=== PATIENT | male | born 1985 | race Caucasian/White ===

== ENCOUNTER 2016-11-29 18:41 | Inpatient (IN) | payer OTHER ==
[2016-11-29] MEDS ORDERED: fentaNYL 100 MCG/2 ML INJ ONE (18:46)
--- NOTE | 2016-11-29 19:26 | EDPHY ---
H & P HPI/ROS: CHIEF COMPLAINT: Left ankle injury HISTORY OF PRESENT ILLNESS: Patient is a 31-year-old male who presents to the emergency department as a full trauma activation by EMS. Patient states he was climbing had a rock climbing gym. He forgot to place himself on protection. He climbed to about 35 feet and fell. He landed on his feet. He felt a pop in his left ankle. He has significant pain in his left ankle. This is not radiate. He had mild tingling in his left foot but denies numbness. Patient denies any other discomfort. He has no pelvic pain. Denies back pain. He has no neck pain. He states he did not strike his head or lose consciousness. REVIEW OF SYSTEMS: My complete review of systems is negative except as mentioned in the HPI. 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 Purple hair. HEAD: No evidence of trauma. EYES: PERRLA, EOMI, normal to inspection. ENT: Airway intact, no dental or oral injury, no malocclusion, no hemotympanum , normal external examination. NECK: The trachea is midline. There is no crepitus. The C-spine is nontender. NEXUS criteria is negative (no midline tenderness, no distracting injury, no altered mental status, no recent alcohol use, no focal neurologic deficit). RESPIRATORY: Clear to auscultation bilaterally, no rales, rhonchi or wheezing. There is no crepitus or palpable rib fractures. CVS: Regular rate and rhythm, no rubs, murmurs, or gallops. ABDOMEN: Soft, nontender, nondistended, normal bowel sounds, no bruising or abrasions. Pelvis: Stable. No tenderness palpation. Hips full range of motion. GENITAL/RECTAL: Normal external exam. BACK: Normal to inspection, no spinal tenderness, no spinal step off, no notable bruising or abrasions. SKIN: Normal color, warm, dry. No pallor or diaphoresis. EXTREMITIES: Right upper extremity: Atraumatic. No visible signs of trauma. No tenderness palpation. Neurovascular intact distally. Left upper extremity: Atraumatic. No visible signs of trauma. No tenderness palpation. Neurovascular intact distally. Right lower extremity: Atraumatic. No visible signs of trauma. No tenderness palpation. Neurovascular intact distally. Left lower extremity: Patient has a deformity at the left ankle. Foot is angulated laterally. There is skin tenting on the medial malleolus. There is no laceration or open wound. Patient's foot appears dusky in color. There is a strong posterior tibialis but no palpable DP. Atraumatic, neurovascularly intact distally in all extremities, pelvis is stable , hips with full range of motion, moves all extremities freely. NEURO/PSYCH: Alert and oriented x 3, GCS 15, normal mood and affect, normal motor sensory exam. Constitutional: Initial Vital Signs Temperature (C) 36.9 C 11/29/16 18:41 Heart Rate 66 11/29/16 18:41 Respiratory Rate 9 L 11/29/16 18:41 Blood Pressure 110/70 11/29/16 18:41 O2 Sat (%) 99 11/29/16 18:41 O2 Delivery Mode Nasal Cannula O2 (L/minute) 2 Allergies/Adverse Reactions: No Known Allergies Allergy (Unverified 11/29/16 19:29) Home Medications: Medication Instructions Recorded oxyCODONE/APAP 5/325 [Percocet 1 - 2 tab PO Q4PRN PRN #11 tab 11/29/16 5/325 (*)] Medical Decision Making ED Course/Re-evaluation: In the emergency department I met EMS on arrival. I took report from the director of scout work. Dr. Scott Abrams from Trauma service was in the emergency department evaluating the patient on EMS arrival. Orthopedics was paged. Portable x-ray of the left foot, ankle, tib-fib and pelvis were performed. Left ankle x-ray: Please refer the dictated report. I reviewed the images at bedside. Patient has a comminuted and displaced distal tibial and fibular fracture. Pelvis x-ray: Negative Tib-fib x-ray: See ankle x-ray above. No proximal tib-fib fracture dislocation. Foot x-ray: Negative Patient was noted to have no DP pulse. I discussed this with the patient. Patient was given fentanyl 100 mcg IV. Using traction I manually reduced the patient's ankle. He was splinted in place with a long leg posterior splint. Post reduction the patient had normal sensation. Patient stated that the tingling improved. Patient's foot color improved. He had brisk capillary refill. The patient continued to have a posterior tibialis pulse. No DP pulse. I discussed case with Dr. Scott Abrams from Trauma Service. He felt the patient was appropriate to downgrade as a limited trauma activation. The patient an isolated injury of his left ankle. I also felt this was appropriate. I discussed the case with Vi from Orthopedics who was in the emergency department. I also discussed the case with Dr. Muniz on the phone. After their evaluation they felt the the patient was appropriate for outpatient management. I discussed specifically the pulse deficit on my exam. Dr. Adair' s felt comfortable splinting and performing outpatient surgery. 193: On re-examination the patient has no numbness or tingling. His foot is pink. Normal sensation. The patient now has a posterior tibialis and the dorsalis pedis pulse. Vi, the PA from Orthopedics in the room evaluating the patient. Patient is now complaining of mid thoracic back pain. He states that extends into his lumbar region. No focal deficits on exam. The patient has no C-spine tenderness. Has full range of motion of his neck. He denies neck pain. Because of the patient's fall and is complaints CT imaging of the thoracic and LS spine was ordered. CT of the thoracic, LS spine. Please refer the dictated report by Dr. Shun Castellon. Patient has a 3 column T12 compression fracture. I discussed this finding with the patient. I answered all his questions. On recheck he was neurovascularly intact distally. I discussed the case with Dr. Scott Abrams. He will admit the patient for further care and observation. I spoke with Dr. Denton from Neurosurgery. He is aware of injury. The patient will be kept on bed rest was spinal precautions. Differential Diagnosis: My differential includes but is not limited to fracture, dislocation, fracture dislocation, neurovascular injury, compartment syndrome, spinal injury, head injury, pelvic injury - Data Points Medications Given: Discontinued Medications Fentanyl (Sublimaze) 100 mcg IVP EDNOW ONE Stop: 11/29/16 20:00 Last Admin: 11/29/16 18:47 Dose: 100 mcg Hydromorphone HCl (Dilaudid) 1 mg IVP EDNOW ONE Stop: 11/29/16 20:00 Last Admin: 11/29/16 19:52 Dose: 1 mg Departure - Departure Disposition: [facility] Clinical Impression: Tibia/fibula fracture Qualifiers: Encounter type: initial encounter Fracture type: closed Laterality: left Qualified Code(s): S82.202A - Unspecified fracture of shaft of left tibia, initial encounter for closed fracture; S82.402A - Unspecified fracture of shaft of left fibula, initial encounter for closed fracture Ankle fracture Qualifiers: Encounter type: initial encounter Fracture type: closed Laterality: left Qualified Code(s): S82.892A - Other fracture of left lower leg, initial encounter for closed fracture T12 compression fracture Qualifiers: Encounter type: initial encounter Qualified Code(s): M48.54XA - Collapsed vertebra, not elsewhere classified, thoracic region, initial encounter for fracture Condition: Good Instructions: Ankle Fracture (ED) Additional Instructions: You been seen by Orthopedic surgery at [facility]. You can follow up with Dr. Kincaid. Ankle specialists in his practice include Dr. Nolan Mackey. Your stated that you have [employer] insurance. I contacted [place] to inform them of your injury. They request that you call the orthopedic appointment line tomorrow. The number is [phone]. Return to the emergency department with increasing pain, numbness, tingling or any other concerns. Leave your splint in place until follow-up. You should be nonweightbearing use her crutches. Referrals: Patient,NotPresent [Unknown] - As per Instructions Prescriptions: oxyCODONE/APAP 5/325 [Percocet 5/325 (*)] 1 - 2 tab PO Q4PRN PRN #11 tab PRN Reason: For Moderate To Severe Pain
[2016-11-29] MEDS ORDERED: ONDANSETRON 4 MG/2 ML VIAL ONE (19:41)
[2016-11-29] MEDS ORDERED: HYDROmorphONE/DILAUDID 1 MG/ML SYR ONE (19:50)
[2016-11-29] MEDS ORDERED: HYDROmorphONE/DILAUDID 1 MG/ML SYR IVP ONE ×2 (19:59→21:00)
[2016-11-29] MEDS ORDERED: fentaNYL 100 MCG/2 ML INJ IVP ONE (19:59)
--- NOTE | 2016-11-29 20:28 | GCON ---
[f rep st] CONSULTATION GENERAL SURGERY CONSULTATION DATE OF CONSULTATION: 11/29/2016 REFERRING PHYSICIAN: Kely Arriaga MD REASON FOR CONSULTATION: Full trauma activation. HISTORY OF PRESENT ILLNESS: 31-year-old healthy male sustained a fall from approximately 30 feet while climbing at the [employer]. He did not clip into his auto nelsy and fell straight down, landing on his left ankle. The patient denied loss of consciousness. He denied hitting his head. He was nonambulatory at the scene and brought by EMS to the emergency room. At the present time, the patient is with complaints of left ankle pain only. He denies chest pains. He denies shortness of breath. He denies abdominal complaints. He denies headache, visual changes, or neck pain. He denies thoracic or lumbar spine pain. He denies hip pain or upper leg pain. He denies numbness or tingling in either foot. PAST MEDICAL HISTORY: Autism, anxiety disorder. PAST SURGICAL HISTORY: Left inguinal hernia repair. MEDICATIONS: Medical marijuana. ALLERGIES: No known drug allergies. SOCIAL HISTORY: Notable for marijuana. No tobacco. He is single. REVIEW OF SYSTEMS: Notable for a recent 75 pounds weight loss, intentional. Otherwise, a negative 10-point review of systems. PHYSICAL EXAMINATION: VITAL SIGNS: The patient is afebrile. Blood pressure 120/80, pulse 90s, respirations 15. PRIMARY SURVEY: ABC intact. SECONDARY SURVEY: HEENT: Pupils are equally round and reactive to light and accommodation. Extraocular muscles are intact. Notable conjunctival injection. Scalp atraumatic, nontender. NECK: Cervical collar in place. Trachea midline without crepitus. Posterior cervical spine nontender. Collar was subsequently removed. HEART: Regular without murmurs. LUNGS: Clear bilaterally. CHEST: Chest wall with mild superficial abrasions along the right lateral chest wall. No bony step-offs or deformities. ABDOMEN: Soft, nontender, nondistended. PELVIS: Nontender. Left groin with a well-healed inguinal hernia with palpable contracted mesh. No evidence of recurrent hernia. MUSCULOSKELETAL: Thoracic and lumbar spines nontender. Right lower extremity normal. Left lower extremity with obvious ankle deformity with overlying intact skin with displaced bone. VASCULAR: 2+ radial pulses bilaterally. 2+ right dorsalis pedis and posterior tibial pulse. 2+ left posterior tibial pulse. Dorsalis pedis pulse not palpable. The foot was subsequently reduced, again with a nonpalpable dorsalis pedis pulse with a completely viable foot, pink, warm with normal sensation. Normal bilateral popliteal arteries. Normal bilateral femoral arteries. IMAGING: Ankle x-ray directly reviewed: Distal left tib-fib fracture. Subsequent review with radiology discloses intra-articular extension with an associated left fibular fracture. TERTIARY ASSESSMENT: New complaint of mid back pain. Subsequent imaging performed discloses T12 compression fracture. Patient remains neurologically intact. DP pulse is now present post ankle reduction. IMPRESSION: 1. Fall approximately 30 feet. 2. Comminuted left distal tibia-fibula fracture with articular surface involvement. 3. T12 compression fracture. PLAN: 1. Orthopedics Service has been consulted for surgical ORIF. Left ankle has been reduced and splinted temporarily. They recommend outpatient follow-up either here or at [place]. 2. Cervical spine has been clinically cleared. 3. Unstable T12 compression fracture - Neurosurgery has been contacted. Will maintain spinal precautions until dispo determined. /[id number]/MODL MTDD
[2016-11-29] MEDS ORDERED: ONDANSETRON 4 MG/2 ML VIAL IVP PRN (20:49)
--- NOTE | 2016-11-29 21:38 | SOAPPROG ---
SOAP Progress Note Assessment/Plan: Assessment: HPI: 31 y/o male s/p 35 foot fall onto LLE and back earlier today when climbing at a gym after he forgot to clip in. He was brought to the [facility] ED where he was found to have a left pilon fracture, left distal fibular shaft fracture, and a T12 burst fracture with extension across all three columns. PE: General: NAD Vitals: AVSS LLE: Posterior sugar-tong splint CDI 2+ DP and PT pulses +TA, EHL, FHL, G/S +SILT in DP, SP, Sural, T, Saphenous distributions Imaging: Left ankle and left tibia/fibula radiographs, three views Action: interpreted Interpretation: Left tibial pilon fracture, left distal fibular shaft fracture Assessment and Plan 31 y/o male s/p a left pilon fracture, left distal fibular shaft fracture, and a T12 burst fracture with extension across all three columns -Continue in current splint -Strict NWB on LLE -Elevate LLE -Will wait until patient has been cleared by neurosurgery to determine further plan for left ankle -Full consult note to follow 11/29/16 21:32 12/06/16 19:58 Objective: Vital Signs Temp Pulse Resp BP Pulse Ox 36.9 C 66 9 L 110/70 99 11/29/16 18:41 11/29/16 18:41 11/29/16 18:41 11/29/16 18:41 11/29/16 18:41 ICD10 Worksheet Patient Problems: Problems Problem Status Onset Activity, mountain climbing, rock climbing and wall climbing Acute Ankle fracture Acute Fall involving playground climbing apparatus as cause of accidental injury Acute T12 compression fracture Acute Tibia/fibula fracture Acute
[2016-11-29] MEDS: HYDROmorphONE/DILAUDID 1 MG/ML SYR IVP PRN (22:36)
--- NOTE | 2016-11-29 23:13 | GCON ---
[f rep st] CONSULTATION Patient Name: KRISH LOPEZ N-Number: [id number] Date of : 11/29/16 Patient Status: Admit Attending Doctor: Scott Abrams MD Consulting Doctor: Daniele Adari MD Date of service: 11/29/16 CPT codes: CPT code 69326 ER visit requiring admission or initial inpatient visit, level four CHIEF COMPLAINT: Left ankle pain s/p a 30 feet foot, lower thoracic back pain HISTORY OF PRESENT ILLNESS: This is a very pleasant 31 year old male with a significant history for fall 30 feet while climbing at [employer]. He fell directly onto his left ankle. He was brought to [facility] ED and reported severe left ankle pain as well as lower thoracic back pain. He was found to have a left pilon fracture, a left distal fibular shaft fracture, and a T12 burs fracture. He denies head injury. PROBLEM LIST: Left pilon fracture, left distal fibular shaft fracture, T12 burst fracture PAST MEDICAL HISTORY: Autism, anxiety disorder SURGERIES: Left inguinal hernia repair SOCIAL HISTORY: Notable for marijuana FAMILY HISTORY: No pertinent family history CURRENT MEDICATIONS: Medical marijuana ALLERGIES: NKDA REVIEW OF SYSTEMS Constitutional: No unexpected weight loss, weight gain, fevers, chills, or fatigue. Eyes: No blurred or double vision, no eye pain, redness or swelling. ENT: No headaches, difficulty swallowing, nose bleeds, tinnitus, or earaches. Cardiovascular: No chest pain, palpitations, fainting or murmurs. Respiratory: No shortness of breath, wheezing, cough, of difficulty breathing. GI: No reflux, no nausea or vomiting, no constipation, diarrhea, or bloody stools. Genitourinary: No urinary frequency or urgency, no pain with urination. Skin: No skin changes, rashes, itching, or redness. Neurologic: No dizziness, tremors, or seizures. Psychiatric: No nervousness, anxiety, depression, or hallucinations. Hematologic: No increased bleeding or easy bruising. Endocrine: No excessive thirst or urination and no heat or cold intolerances. Allergic: No reactions to food or environment. Musculoskeletal: See history of present illness. PHYSICAL EXAM General: No apparent distress. Orientation: Alert and oriented times three Mood and affect: Calm, appropriate. Gait and station: Normal gait and station. Skin: Warm, dry. Lymph: Non tender neck, axillary and inguinal nodes. Chest: Equal expansion, no pain with deep breaths, speaks in coherent sentences. Cardiovascular: Regular pulse. Abdomen: Soft, non-tender, no masses, no palpable hernias. Back and bilateral lower extremity examination Inspection/palpation: TTP along the T12 vertebra posteriorly Skin: Skin intact with no erythema, blistering, or rashes. Range of motion Lateral flexion (R / L / Normal): SANTY / SANTY / 25 Flexion (Value / Normal): SANTY / 90 Extension (Value / Normal): SANTY / 25 Strength (R / L / Normal) Muscle(s) Quadriceps (L3-L4): 5 / 4 / 5 Hamstrings (L4-L5): 5 / 4 / 5 Tibialis anterior (L4): 5 / SANTY / 5 EHL (L5): 5 / 3 / 5 FHL (S1): 5 / 3 / 5 Gastroc-soleus (S1): 5 / 3 / 5 Sensory (R / L / Normal) Dermatomes L1 (groin): + / + / + L2 (medial upper thigh): + / + / + L3 (anterior thigh): + / + / + L4 (medial ankle): + / + / + L5 (first dorsal web space): + / + / + S1 (lateral border of foot): + / + / + Peripheral nerves Superficial peroneal: + / + / + Deep peroneal: + / + / + Sural: + / + / + Tibial: + / + / + Saphenous: + / + / + Bilateral ankle examination Inspection/palpation: Right: Soft, non-tender. Left: Moderate swelling, skin intact Range of motion Dorsiflexion: 20 / SANTY / 20 Plantarflexion: 40 / SANTY / 40 Vascular (R / L / Normal) Dorsal pedis pulse: 2+ / 2+ / 2+ Tibialis posterior pulse: 2+ / 2+ / 2+ Medical decision making Data Imaging study: Left ankle, two views Action: interpreted Interpretation / pertinent findings: left pilon fracture, left distal fibular shaft fracture Imaging study: CT of the thoracic spine Action: interpreted Interpretation / pertinent findings: T12 burs fracture with mild kyphotic deformity Diagnoses New diagnosis: left pilon fracture, left distal fibular shaft fracture Work-up planned: yes: see assessment and plan New diagnosis: T12 burst fracture Work-up planned: yes: see assessment and plan Assessment and plan This is a 31 year old patient with left pilon fracture, a left distal fibular shaft fracture, and a T12 burst fracture after a 30 foot fall earlier today -As such I have discussed with the patient the risks, benefits, alternatives, and complications associated with both non-operative (specifically, observation , splinting) and operative (specifically, left ankle spanning external fixation , left distal fibula ORIF, and left pilon ORIF) forms of treatment -The patient fully understands the risks, benefits, alternatives, and complications of both forms of treatment and he will remain in his current splint until cleared by Neurosurgery for his thoracic spine injury Time I have spent 80 minutes of [id number] time with the patient during this visit. Over fifty percent of this time was spent counseling the patient on the risks, benefits, alternatives, and complications of both non-operative and operative forms of treatment as outlined above. /[id number]/MODL MTDD
[2016-11-30] MEDS: HYDROmorphONE/DILAUDID 1 MG/ML SYR IVP PRN ×4 (00:09→16:10)
[2016-11-30] MEDS: oxyCODONE IR 5 MG TAB PO PRN ×3 (00:10→13:25)
[2016-11-30] MEDS: LORazepam 1 MG TAB PO PRN ×2 (01:34→05:15)
[2016-11-30] MEDS: ZOLPIDEM TARTRATE 5 MG TAB PO PRN (02:46)
--- NOTE | 2016-11-30 08:26 | SOAPPROG ---
SOAP Progress Note Assessment/Plan: Assessment: L communinuted pilon fracture Plan: Ex fix and possible orif fibula this afternoon nwb LLE elevate aggressivly NPO 11/30/16 08:25 Objective: Vital Signs Temp Pulse Resp BP Pulse Ox 36.6 C 60 18 118/73 96 11/30/16 04:36 11/30/16 04:36 11/30/16 04:36 11/30/16 04:36 11/30/16 04:36 11/29/16 11/30/16 12/01/16 05:59 05:59 05:59 Intake Total 1000 Output Total 600 Balance 1000 -600 ICD10 Worksheet Patient Problems: Problems Problem Status Onset Ankle fracture Acute T12 compression fracture Acute Tibia/fibula fracture Acute
--- NOTE | 2016-11-30 09:50 | GCON ---
[f rep st] CONSULTATION NEUROSURGERY CONSULTATION DATE OF CONSULTATION: 11/30/2016 Patient was seen and evaluated on the general care floor at [facility] approximately 8:30 a.m. on 11/30/2016. HPI: The patient is a 31-year-old man who was rock climbing and was not clipped into his nelsy when he fell approximately 35 feet, landing on his left ankle, and then falling down onto his back. He denies any loss of consciousness. He did not hit his head. He had immediate pain in the left leg m ostly and ankle, and some pain also in his back. He was transported to the [facility] Emergency Department where he was worked up as a trauma. He did not have any other complaints ot her than the left leg pain and relatively mild low back pain. He was found to have a compound ankle fracture on the left side and a T12 burst fracture with no significant retropulsion and mild kyphos is on CT of the thoracic spine. He had a subsequent MRI which did not show any canal compromise and no injury to the posterior ligaments. Neurologically, he was completely asymptomatic with no pain in his legs, good strength and sensation. PAST MEDICAL HISTORY: 1. Autism. 2. Anxiety disorder. 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 PAST SURGICAL HISTORY: Hernia repair. ALLERGIES: No known drug allergies. MEDICATIONS: Medical marijuana and a number of herbal medications. SOCIAL HISTORY: The patient does use marijuana. He denies tobacco, alcohol, or other drug use. FAMILY HISTORY: No significant family history of other back problems. REVIEW OF SYSTEMS: A 10-point review of systems is negative other than that described in the HPI. PHYSICAL EXAM: Currently, he has normal stable vital signs. He is awake, alert, and oriented x3. His affect is somewhat flattened than usual but otherwise he is conversant and answers questions. T he pupils are equal, round, and reactive to light. Extraocular movements are intact. Face is symme tric. Tongue is midline. He has full 5/5 strength in the deltoid, biceps, triceps, wrist flexion, extension, and manager rfid bilaterally. In the lower extremities, his left lower extremity is somewhat rodriguez ited by pain but he appears to have 5/5 strength of the hip flexors and extensors, knee flexors and extensors, and plantar and dorsiflexion bilaterally. The left ankle is in a splint, therefore the p lantar and dorsiflexion is difficult to assess. His incision from the examinable portions of the le gs is normal. The deep tendon reflexes are normal. IMAGING REVIEW: See HPI. RESULTS REVIEW: There are no labs to review. ASSESSMENT AND PLAN: The patient is a 31-year-old otherwise healthy man who fell 35 feet and sustai jeremy a T12 burst fracture. There is about 40% to 50% loss of height and mild kyphosis but the nurse practical ior ligaments are intact. There is no retropulsion or canal compromise. At this point, I would rec ommend having Magnetic Resonance Imaging Director fit a custom casted TLSO with slight extension bias and this most likely will b e quite adequate for treatment for this fracture. After the brace is fit, would get upright films a nd if he does have an increasing amount of kyphosis, then surgical stabilization might be an option but it is very likely that this will heal well in a brace. We will continue to follow but please do not hesitate to call us with any questions or concerns in the meantime. In the meantime, it would be fine for him to go for surgical fixation of his ankle if this is necessary. /[id number]/MODL
--- NOTE | 2016-11-30 11:09 | TRAUMAPN ---
Assessment/Plan: 31yo M s/p 30ft fall c T12 burst fx, L ankle fx - Neuro: pain controlled, neuro intact. NSG following for burst, will get TLSO fitted - Resp: AR, aggressive IS - CV: HDS - GI; abd soft, ND, NTTP, NPO for ORIF anlke - : voiding - ID: [email or web address] - Dispo: PT/OT, ORIF for ankle, will get post TLSO films to ensure proper alignment, no other injuries identified on exam today Subjective: Pain appears well controlled, no complaints Objective: Vital Signs Temp Pulse Resp BP Pulse Ox 36.9 C 67 15 114/74 96 11/30/16 09:08 11/30/16 09:08 11/30/16 09:08 11/30/16 09:08 11/30/16 09:08 11/29/16 11/30/16 12/01/16 05:59 05:59 05:59 Intake Total 1000 Output Total 600 Balance 1000 -600
[2016-11-30] MEDS: NS 1,000 ML IV SCH (12:00)
[2016-11-30] MEDS ORDERED: BUPIVACAINE 0.5% 30 ML SDV ONE (15:14)
[2016-11-30] MEDS ORDERED: SKIN ADHESIVE (DERMABOND) 1 EACH TP ONE (15:14)
[2016-11-30] MEDS ORDERED: fentaNYL 100 MCG/2 ML INJ ONE (17:47)
[2016-11-30] MEDS ORDERED: ONDANSETRON 4 MG/2 ML VIAL ONE (17:48)
[2016-11-30] MEDS ORDERED: LIDOCAINE 2% 5 ML SDV ONE (17:49)
[2016-11-30] MEDS ORDERED: CEFAZOLIN 2 GM/DEXTROSE/100 ML BAG IV ONE (17:59)
[2016-11-30] MEDS ORDERED: ceFAZolin 2 GM/DEXTROSE 100 ML IV ONE (18:00)
[2016-11-30] MEDS ORDERED: ROCURONIUM 50 MG/5 ML VIAL ONE (18:04)
[2016-11-30] MEDS ORDERED: MIDAZOLAM 2 MG/2 ML VIAL ONE (18:14)
[2016-11-30] MEDS ORDERED: fentaNYL 250 MCG/5 ML INJ ONE (18:46)
[2016-11-30] MEDS ORDERED: KETOROLAC 30 MG/1 ML SDV ONE (19:38)
[2016-11-30] MEDS ORDERED: GLYCOPYRROLATE 0.2 MG/1 ML VIAL ONE (19:50)
--- NOTE | 2016-11-30 20:07 | POSTOPPROG ---
Post Op Note Date of Operation: 11/30/16 Surgeon: Will Francisco Anesthesiologist: Dannielledegallo Anesthesia: GET(General Endotracheal) Pre-op Diagnosis: L pilon fracture, fibular fracture Post-op Diagnosis: same Indication: communited, shortended Procedure: orif fibula, closed treatment with manipulation pilon fracture, ex- fix Inf/Abcess present in the surg proc area at time of surgery?: No EBL: 50-100
[2016-11-30] MEDS ORDERED: HYDROmorphONE/DILAUDID 1 MG/ML SYR ONE (20:41)
[2016-12-01] MEDS: NS 1,000 ML IV SCH (01:35)
[2016-12-01] MEDS: oxyCODONE IR 5 MG TAB PO PRN ×5 (03:43→19:43)
[2016-12-01] MEDS: HYDROmorphONE/DILAUDID 1 MG/ML SYR IVP PRN ×3 (03:43→19:43)
--- NOTE | 2016-12-01 06:13 | GOP ---
[f rep st] OPERATIVE REPORT DATE OF OPERATION: 11/30/2016 SURGEON: Will Francisco MD PROGRAM ASSISTANT: None. ANESTHESIA: General. PREOPERATIVE DIAGNOSIS: Left comminuted pilon fracture, fibula fracture. POSTOPERATIVE DIAGNOSIS: Left comminuted pilon fracture, fibula fracture. PROCEDURE PERFORMED: 1. Open reduction, internal fixation left fibula. 2. Closed treatment with manipulation left pilon. 3. Placement large external fixator. FINDINGS: ESTIMATED BLOOD LOSS: 10 mL INDICATIONS: This is a young male who sustained a fall from a height sustaining a comminuted shortened intra-articular pilon fracture. He was admitted to Trauma service and seen in consultation by one of my partners. I was asked today to see him in evaluation for treatment. I counseled patient on the risks and benefits of an external fixator placement with possible ORIF of his fibula in order to obtain stability and allow soft tissues to be minimal for surgical repair. He consented to this. Discussed soft-tissue injury, risk of skin breakdown, nerve injury, continued swelling, pain, nonunion, malunion, need for the further definitive treatment, nerve injury and possible amputation with an injury this severe and would like to proceed. Informed consent obtained. All questions were answered. He was marked preoperatively. DESCRIPTION OF PROCEDURE: He was taken to the operative suite. General anesthesia was induced. Sterile prep and drape in the usual fashion. Time-out was performed verifying site, side, location in agreement with the team. Using the guide, I made 2 incisions over the tibia and placed 2 half pins for an external fixator Bicortically. Then made an incision with fluoroscopy over the medial side of the calcaneus and placed bicortical calcaneal pin through this. Some of the external fixator made adjustments. Pulled this out to length. It was very difficult to obtain a reduction. The fibula was quite often pinned against itself and it was difficult to make the ankle mortise look correct. I made a decision to fix the fibula in order to help with length, alignment and rotation. Made incision over the fibula in the posterior lateral area. Allowing adequate space for the anterior incision needed later as well as access to posterior portion later. I exposed the fibular fracture, manually distracted this. While loosening 1 side of the ex-fixator, placed the 2 ends together. I placed a one-third tubular plate on this and placed 3 screws on each side, achieving good stable construct and good reduction. This helped immensely with reduction overall of the ankle. I made small adjustments of the external fixator and then tightened this down and took final x-rays, made sure this was finally tightened. The wounds were thoroughly closed with 0 Vicryl, 2- 0 Vicryl and nylon, was placed in sterile dressing, taken to PACU in stable condition. COMPLICATIONS: None. DRAINS: None. CONDITION: Stable. /[id number]/MODL MTDD
--- NOTE | 2016-12-01 07:37 | NEUSURGPN ---
Assessment/Plan: 31 yo male s/p fall with T12 burst fracture - neuro stable - will attempt to treat conservatively with a brace to be worn when out of bed - patient received wrong brace, needs to obtain a custom clamshell TLSO brace with slight extension - wear brace when HOB > 30 degrees - once brace arrives, patient to obtain upright x-rays. If fracture stable will treat with brace Subjective: Having localized back pain, worse than prior to his fall. Believes it is due to laying in bed, typically he sleeps in a recliner. Objective: Awake. Alert. PERRL. EOMI RLE strength 5/5 Sensation intact Catheter Insertion Date: 11/30/16 - Physician Discussed Patient with : [facility] Physical Exam - Vitals, I&O, Labs I and O 11/30/16 12/01/16 12/02/16 05:59 05:59 05:59 Intake Total 1000 3750 Output Total 2375 Balance 1000 1375 Weight 68.492 kg Intake: Oral (ml) 1000 IV Intake (ml) 1600 IV Infused (ml) 1000 1150 Ns 1,000 ml @ 100 mls/hr 1100 IV CONT ROSALIE Rx#: [id number] ceFAZolin 1 GM/DEXTROSE 50 50 ml @ 200 mls/hr IV Q8H COUNTS INCLUDE 234 BEDS AT THE [facility] Rx#:[id number] Output: Urine (ml) 2350 Catheter 2350 Estimated Blood Loss (ml) 25 Other: Bladder Scan Volume (ml) Catheter 900 Urinal 571 Vital Signs Temp Pulse Resp BP Pulse Ox 36.9 C 62 16 122/80 H 94 12/01/16 04:00 12/01/16 04:00 12/01/16 04:00 12/01/16 04:00 12/01/16 04:00 ICD10 Worksheet Patient Problems: Problems Problem Status Onset Ankle fracture Acute T12 compression fracture Acute Tibia/fibula fracture Acute
[2016-12-01] MEDS: LORazepam 1 MG TAB PO PRN ×3 (12:49→21:27)
--- NOTE | 2016-12-01 13:14 | SOAPPROG ---
SANTIAGO Progress Note Assessment/Plan: Assessment: L communinuted pilon fracture Plan: Status post left ankle external fixator placement and ORIF fibula 11/30 nonweightbearing left ankle May change dressings as needed recommend compression elevation and ice he needs to keep this dry leave dressings intact over pains no specific pain care required at this point he may be discharged from my standpoint follow up with me next week in clinic he has my number to make an appointment I will plan on definitive fixation of the Pilon fracture with removal of the ex fix in approximately 2 weeks 12/01/16 13:12 Subjective: minimal pain at rest pain laterally with any movement of the ankle he complains mostly of back pain today Objective: Vital Signs Temp Pulse Resp BP Pulse Ox 36.9 C 67 15 118/74 94 12/01/16 08:54 12/01/16 08:54 12/01/16 08:54 12/01/16 08:54 12/01/16 08:54 11/30/16 12/01/16 12/02/16 05:59 05:59 05:59 Intake Total 1000 3750 Output Total 2375 Balance 1000 1375 left external fixator intact dressing is dry he has good sensation of his toes and can flex and extend them well. ICD10 Worksheet Patient Problems: Problems Problem Status Onset Ankle fracture Acute T12 compression fracture Acute Tibia/fibula fracture Acute
--- NOTE | 2016-12-01 17:51 | TRAUMAPN ---
Assessment/Plan: 31 yo M s/p fall while rock climbing. Comminuted L tib-fib fx - s/p ex fix and ORIF fibula 11/30. Nonweightbearing L ankle. F/u Dr. Francisco 1 week. T12 burst fx - awaiting correct custom clamshell TLSO brace, then upright x- rays. NSG following Pain controlled Dispo: home when brace arrives and xrays obtained. Seen with Dr. Haskins S: complains of back pain, which he attributes is due to laying in the bed. He is upset that staff is questioning his dietary restrictions. O: laying in bed, appears comfortable, NAD No increased WOB, CTAB RRR LLE dressings intact Objective: Vital Signs Temp Pulse Resp BP Pulse Ox 37.1 C 75 15 125/78 H 94 12/01/16 16:30 12/01/16 16:30 12/01/16 16:30 12/01/16 16:30 12/01/16 16:30 11/30/16 12/01/16 12/02/16 05:59 05:59 05:59 Intake Total 1000 3750 2500 Output Total 2375 2500 Balance 1000 1375 0
[2016-12-01] MEDS: ZOLPIDEM TARTRATE 5 MG TAB PO PRN (21:30)
[2016-12-02] MEDS: oxyCODONE IR 5 MG TAB PO PRN ×5 (02:01→23:57)
[2016-12-02] MEDS: HYDROmorphONE/DILAUDID 1 MG/ML SYR IVP PRN ×2 (02:02→22:17)
[2016-12-02] MEDS: ZOLPIDEM TARTRATE 5 MG TAB PO PRN ×2 (02:02→23:58)
--- NOTE | 2016-12-02 08:07 | NEUSURGPN ---
Assessment/Plan: Assessment: 31 yo male s/p fall with T12 burst fracture and other ortho injuries Plan: -neuro stable -will attempt to treat conservatively with a brace to be worn when out of bed -patient received wrong brace yesterday, needs to obtain a custom clamshell TLSO brace with slight extension-this is pending at this time -wear brace when HOB > 30 degrees -once brace arrives, patient to obtain upright x-rays. If fracture stable will treat with brace -warning signs given -call with any questions or concerns -pt d/w Dr Elam Subjective: Awake and alert. NAD. Eating/drinking and voiding. No f/c/n/v/d. No figueroa/neck/ chest/abd or gu complaints. Objective: AAO x 3, PERRLA/EOMI no droop CN 2-12 grossly intact +lt touch THI x 4, limited to LLE due to ex fix in place Neuro Check Frequency: per routine Urinary Catheter in Place: No Catheter Insertion Date: 11/30/16 - Physician Discussed Patient with Dr.: [facility] Physical Exam - Vitals, I&O, Labs I and O 12/01/16 12/02/16 12/03/16 05:59 05:59 05:59 Intake Total 3750 3150 Output Total 2375 4000 Balance 1375 -850 Intake: Oral (ml) 1000 3150 IV Intake (ml) 1600 IV Infused (ml) 1150 Ns 1,000 ml @ 100 mls/hr 1100 IV CONT ROSALIE Rx#: [id number] ceFAZolin 1 GM/DEXTROSE 50 50 ml @ 200 mls/hr IV Q8H ROSALIE Rx#:[id number] Output: Urine (ml) 2350 4000 Catheter 2350 4000 Estimated Blood Loss (ml) 25 Other: Number of Voids Catheter 1 Bladder Scan Volume (ml) Catheter 900 Vital Signs Temp Pulse Resp BP Pulse Ox 37.1 C 95 16 134/82 H 97 12/02/16 07:54 12/02/16 07:52 12/02/16 07:52 12/02/16 07:52 12/02/16 07:52 ICD10 Worksheet Patient Problems: Problems Problem Status Onset Ankle fracture Acute T12 compression fracture Acute Tibia/fibula fracture Acute
[2016-12-02] MEDS ORDERED: LACTULOSE 20 GM/30 ML UDCUP PO PRN (08:46)
[2016-12-02] MEDS ORDERED: MAGNESIUM HYDROXIDE 30 ML UDCUP PO PRN (08:46)
[2016-12-02] MEDS ORDERED: BISACODYL 10 MG SUPP PR PRN (08:46)
[2016-12-02] MEDS: SENNOSIDES/DOCUSATE SODIUM TAB PO SCH ×2 (09:36→20:41)
[2016-12-02] MEDS: POLYETHYLENE GLYCOL 3350 17 GM PKT PO PRN (09:36)
--- NOTE | 2016-12-02 13:32 | TRAUMAPN ---
- Problem/Surgery Performed (2) Fall involving playground climbing apparatus as cause of accidental injury Assessment/Plan: fall at climbing gym (3) T12 compression fracture Assessment/Plan: awaiting plain films in brace/distal NV intact Qualifiers: Encounter type: initial encounter Fracture healing: F Qualified Code(s): M48.54XA - Collapsed vertebra, not elsewhere classified, thoracic region, initial encounter for fracture (4) Tibia/fibula fracture Assessment/Plan: s/p ex-fix Dr. Francisco/plain films pending today Qualifiers: Encounter type: initial encounter Fracture type: closed Open fracture type: O Laterality: left Fracture healing: F Qualified Code(s): S82.202A - Unspecified fracture of shaft of left tibia, initial encounter for closed fracture; S82.402A - Unspecified fracture of shaft of left fibula, initial encounter for closed fracture Assessment/Plan: patient remains compromised with low grade fever/indwelling fritz repeat spine films pending in clamshell brace/if unstable may require surgery if stable will DC fritz and discharge tonight or tomorrow? Subjective: awake/alert-currently in clamshell brace awaiting plain films Objective: Vital Signs Temp Pulse Resp BP Pulse Ox 37.3 C 74 16 127/78 H 97 12/02/16 12:03 12/02/16 12:03 12/02/16 12:03 12/02/16 12:03 12/02/16 12:03 12/01/16 12/02/16 12/03/16 05:59 05:59 05:59 Intake Total 3750 3150 Output Total 2375 4000 Balance 1375 -850 - C-Spine Clearance Cervical Spine Cleared: Yes Physical Exam - Physical Exam General Appearance: alert, mild distress Neck: non-tender, full range of motion Respiratory: lungs clear, decreased breath sounds Cardiac/Chest: regular rate, rhythm Abdomen: non-tender, soft Extremities: other (LLE ex-fix for tib fib fracture) Neuro/Psych: alert, oriented x 3, other (distal N/V intact)
--- NOTE | 2016-12-02 17:13 | SOAPPROG ---
SANTIAGO Progress Note Assessment/Plan: Assessment: Lainey communinuted pilon fracture Plan: Status post left ankle external fixator placement and ORIF fibula 11/30 nonweightbearing left ankle May change dressings as needed recommend compression elevation and ice he needs to keep this dry leave dressings intact over pains no specific pain care required at this point he may be discharged from my standpoint follow up with me next week in clinic he has my number to make an appointment I will plan on definitive fixation of the Pilon fracture with removal of the ex fix in approximately 2 weeks on friday 12/1512/01/16 13:12 12/02/16 17:12 Subjective: continued pain in ankle Objective: Vital Signs Temp Pulse Resp BP Pulse Ox 37.2 C 75 16 131/81 H 99 12/02/16 16:33 12/02/16 16:33 12/02/16 16:33 12/02/16 16:33 12/02/16 16:33 12/01/16 12/02/16 12/03/16 05:59 05:59 05:59 Intake Total 1649 1960 Output Total 1855 4000 750 Balance 1375 -850 -750 ex fix intact dressing dry ICD10 Worksheet Patient Problems: Problems Problem Status Onset Activity, mountain climbing, rock climbing and wall climbing Acute Ankle fracture Acute Fall involving playground climbing apparatus as cause of accidental injury Acute T12 compression fracture Acute Tibia/fibula fracture Acute
--- NOTE | 2016-12-02 21:42 | SOAPPROG ---
Downtime Inpatient MD Late Entry SOAP Note: Will initiate Lovenox for VTE prophylaxis/to be held if patient requires surgical intervention. T-spine films reviewed, no significant shift in the T12 fx marked colonic dilatation noted, likely due to agressive bowel prep in process. Will continue supportive care, PT/OT
[2016-12-02] MEDS: LORazepam 1 MG TAB PO PRN (22:17)
[2016-12-02] MEDS: ENOXAPARIN 30 MG/0.3 ML SYR SC SCH (22:23)
[2016-12-03] MEDS: oxyCODONE IR 5 MG TAB PO PRN ×4 (03:03→13:56)
[2016-12-03 03:04] VITALS: RESP 16
[2016-12-03 07:47] VITALS: TEMP 98.8
[2016-12-03] MEDS: ENOXAPARIN 30 MG/0.3 ML SYR SC SCH (09:13)
[2016-12-03] MEDS: POLYETHYLENE GLYCOL 3350 17 GM PKT PO PRN (09:13)
[2016-12-03] MEDS: SENNOSIDES/DOCUSATE SODIUM TAB PO SCH (09:13)
--- NOTE | 2016-12-03 10:00 | SOAPPROG ---
SOAP Progress Note Assessment/Plan: Assessment: Plan: Subjective: hd 5 vss, af flat affect notes back pain from brace. lungs clear, heart no m abd soft, passing flatus. ex fix in place, foot neur intact needs eventual dispo to rehab- needs help with adl. Objective: Vital Signs Temp Pulse Resp BP Pulse Ox 37.1 C 95 16 129/77 H 93 12/03/16 07:45 12/03/16 07:45 12/03/16 07:45 12/03/16 07:45 12/03/16 07:45 12/02/16 12/03/16 12/04/16 05:59 05:59 05:59 Intake Total 3150 500 Output Total 4000 1550 Balance -850 -1050 ICD10 Worksheet Patient Problems: Problems Problem Status Onset Activity, mountain climbing, rock climbing and wall climbing Acute Ankle fracture Acute Fall involving playground climbing apparatus as cause of accidental injury Acute T12 compression fracture Acute Tibia/fibula fracture Acute
--- NOTE | 2016-12-03 11:03 | PDIAF ---
- Diagnosis Diagnosis: left rebeca fx, t12 fx Code Status: Full Code - Medication Management Discharge Medications: Medications to Continue on Transfer Herbals/Supplements -Info Only 1 ea PO DAILY 11/29/16 [Last Taken Unknown] Vitamin B Complex [B Complex] 1 each PO DAILY 11/29/16 [Last Taken Unknown] Discharge Medications: Refer to the Discharge Home Medication list for PRN reason. - Orders Services needed: Physical Therapy, Occupational Therapy Diet Recommendation: no restrictions on diet Diet Texture: Regular Texture Diet Barrientos: No Activity/Weight Bearing Restrictions: none on left foot - Follow Up Care Current Providers and Referrals: Bret Elam MD [Medical Doctor] - (follow up in 2 weeks) Patient,NotPresent [Unknown] - As per Instructions
--- NOTE | 2016-12-03 11:24 | GDS ---
[f rep st] DISCHARGE SUMMARY HISTORY OF PRESENT ILLNESS: The patient is a 31-year-old male, who fell while climbing a rock wall, sustaining a T12 compression fracture and a left ankle fracture. The left ankle fracture requiring open reduction, internal fixation as well as an external fixator, and he is nonweightbearing. Give n his need for a clamshell brace as well as ankle fracture and nonweightbearing, he is sent to inwit ient rehab until he can handle daily living activities. FINAL DIAGNOSIS: As above. DISPOSITION: Transferred to inpatient rehab. FOLLOW UP: Follow up with Orthopedics and Neurosurgery. /[id number]/MODL
--- NOTE | 2016-12-03 11:33 | GDS ---
[f rep st] DISCHARGE SUMMARY HISTORY OF PRESENT ILLNESS: The patient is a 31-year-old, who fell from a climbing wall. No loss o f consciousness. Complaining of left ankle pain. He was found to have a tib-fib fracture as well a s an unstable T12 compression fracture. HOSPITAL COURSE: The patient underwent placement of an external fixator on the ankle fracture as we ll as internal fixation and a brace has been placed by neurosurgery for a spine fracture. They martha mmend nonoperative treatment initially. Because of the difficulties in activities of daily living [facility] activities of daily living until he can return to an independent state. FINAL DIAGNOSES: Distal tib-fib fracture left ankle, T12 compression fracture. DISPOSITION: Transfer to rehab. Further followup per orthopedics. /[id number]/MODL
[2016-12-03 12:02] VITALS: BP 127/80; PULSE 87; O2SAT 95
--- NOTE | 2016-12-03 13:08 | WOCRNPDOC ---
WOCRN Advanced Assessment Note - Skin Integrity Problem, Advanced Assess Right Posterior Upper Thigh Abrasion Dressing Type: Allevyn Life, Open to Air Integumentary Issue Intervention: Visualized Under Dressing Site Measurement - Head-to-Toe Length X Width X Depth (cm): x 2 wounds: right buttock: 4x0.5x0.1 and right greater trochanter: 7.3x1x0.1 Skin Integrity Problem Comment: Two partial thickness wounds. Cleaned with ns and gauze. Applied wound gel and allevyn life. Change Q3D/prn. Right Lateral Calf Abrasion Dressing Type: Ne, Xeroform Dressing Description: Clean/Dry, Intact (adhered to wound bed) Integumentary Issue Intervention: Dressing Changed, Dressing Initialed & Dated Wound Bed Constitution: Smooth Tissue Wound Edges: Attached Site Measurement - Head-to-Toe Length X Width X Depth (cm): 1.3x17x0.2 Skin Integrity Problem Comment: Dressing was adhered to wound. Removed dressing. Cleaned with ns. Wound gel to wound bed. Covered whole wound with mepitel contact layer that can stay on until 12/12, and then non border foam. Secured with ne and netting. Report given to Nini SALDIVAR at [facility] rehab re: wound care. Change outer dressing Q3D/prn. Right Upper Arm Dressing Type: Allevyn Life Dressing Description: Clean/Dry, Intact Site Measurement - Head-to-Toe Length X Width X Depth (cm): 0.5x0.5x0.1 Skin Integrity Problem Comment: Cleaned with ns and gauze. Applied wound gel and allevyn life. Change Q3D. Right Hand Dressing Type: Band Aid Site Measurement - Head-to-Toe Length X Width X Depth (cm): 0.5x0.5x0.2 Skin Integrity Problem Comment: Appears to be a de viktoria sangenous blister. No concerns. Keep covered with band aid with silvasorb or Allevyn if it will stay on. Change Q3D/prn.
--- NOTE | 2016-12-03 13:21 | PDIAF ---
- Diagnosis Diagnosis: deirdre jose fx, t12 fx Code Status: Full Code - Medication Management Discharge Medications: Medications to Continue on Transfer Polyethylene Glycol 3350 [Miralax 17 gm (*)] 17 gm PO DAILY PRN #0 pkt 12/03/16 [Last Taken Unknown] Sennosides/Docusate Sodium [Senokot-S] 1 - 2 tab PO BID #0 tab 12/03/16 [Last Taken Unknown] Zolpidem Tartrate [Ambien 5MG (*)] 5 - 10 mg PO HS PRN #0 tab 12/03/16 [Last Taken Unknown] oxyCODONE CR [Oxycontin] 20 mg PO BID #0 tab 12/03/16 [Last Taken Unknown] oxyCODONE IR [Oxycodone Ir (*)] 5 - 15 mg PO Q3HRS PRN #0 tab 12/03/16 [Last Taken Unknown] Discharge Medications: Refer to the Discharge Home Medication list for PRN reason. - Orders Services needed: Home Care, Registered Nurse, Physical Therapy, Occupational Therapy Home Care Face to Face: I certify that this patient was under my care and that I had the required [id number] encounter meeting the encounter requirements on the discharge day. My findings support the fact that the patient is homebound as defined in CMS Chapter 7 Medicare Benefits Manual 30.1.1, The condition of the patient is such that there exists a normal inability to leave home and consequently, leaving home would require a considerable and taxing effort. Diet Recommendation: no restrictions on diet Diet Texture: Regular Texture Diet Barrientos: No Activity/Weight Bearing Restrictions: none on left foot - Follow Up Care Current Providers and Referrals: Bret Elam MD [Medical Doctor] - (follow up in 2 weeks) Patient,NotPresent [Unknown] - As per Instructions
== END 2016-12-03 14:44 | DRG 493 ==
LOC: OBSVTOIN 20:48 → EDBD 20:48 → F3N 23:42
PROVIDERS: ADMIT Surgery; ATTEND Surgery
DX: S82.452A Displaced comminuted fracture of shaft of left fibula, initial encounter for closed fracture (principal); S82.872A Displaced pilon fracture of left tibia, initial encounter for closed fracture; S22.082A Unstable burst fracture of T11-T12 vertebra, initial encounter for closed fracture; F84.0 Autistic disorder; W17.89XA Other fall from one level to another, initial encounter; Y93.31 Activity, mountain climbing, rock climbing and wall climbing; Y92.838 Other recreation area as the place of occurrence of the external cause
CPT/HCPCS: 96374; 97162-GP; 97166-GO; C1713; J0690; J1170; J1650; J1885; J2250; J2405; J3010

== ENCOUNTER 2016-12-03 10:57 | Inpatient (IN) | payer OTHER ==
[2016-12-03] MEDS ORDERED: POLYETHYLENE GLYCOL 3350 17 GM PKT PO PRN (16:15)
[2016-12-03] MEDS ORDERED: ZOLPIDEM TARTRATE 5 MG TAB PO PRN (16:15)
[2016-12-03] MEDS ORDERED: SENNOSIDES 1 TAB PO PRN (16:16)
[2016-12-03] MEDS ORDERED: BISACODYL 10 MG SUPP PR PRN (16:42)
--- NOTE | 2016-12-03 16:52 | PDOREHIP ---
Admission [facility] - Admission - 3 Day Assessment Period Admission Date/Day 1: 12/03/16 Day 2: 12/04/16 Day 3: 12/05/16 - Active Diagnoses Comorbidities and Co-existing Conditions at Admission: 12750. None of the Above - Skin Conditions Unhealed Pressure Ulcer (1 or more/Stage 1 or >)-Admission: 0. No
--- NOTE | 2016-12-03 18:06 | GHP ---
[f rep st] HISTORY AND PHYSICAL HISTORY AND PHYSICAL AND POST ADMISSION PHYSICIAN EVALUATION AND REHABILITATION TREATMENT PLAN DATE OF ADMISSION: 12/03/2016 DATE OF EVALUATION: 12/03/2016 TIME OF EVALUATION: 1600. REFERRING FACILITY: [facility]. IMPAIRMENT GROUP: [id number]. DATE OF ONSET: 11/29/2016. REFERRING PHYSICIAN: Dr. Abrams. CONSULTING PHYSICIANS: He was seen in consultation by Dr. Elam, neurosurgery, and orthopedic surgeon, Dr. Francisco. REHABILITATION DIAGNOSIS: Multiple trauma. ETIOLOGIC DIAGNOSIS: Other, multiple trauma. DATE OF SURGERY: 11/30/2016. HISTORY OF PRESENT ILLNESS: Mr. Carmen was climbing at climbing gym. He fell approximately 35 feet. He was not clipped into a nelsy device. He fractured his left ankle and sustained a compression fracture to the T12 vertebra. He was brought to [facility] where imaging revealed a comminuted distal left tibial fracture with disruption of the articular surface and an angulated distal left fibular fracture. Spinal imaging with an MRI showed a 3- column fracture through the T12 vertebral body, associated with vertebral body compression without thoracic cord edema or epidural hematoma. There was prevertebral blood along with subcutaneous blood posteriorly. Additionally, he was found to have rope piper as he attempted to arrest his fall by grabbing the rope. These piper are on his left lower leg, on his right posterior upper thigh , on his right lateral calf, and on his right hand. He was taken to surgery where he had open reduction and internal fixation of the left fibula and placement of a large external fixator on 11/30/2016. He had issues with pain control and has been titrated on opiates to his current regimen of oxycodone continuous release 20 mg twice b.i.d. and immediate release 5-15 mg every 3 hours as needed. He had constipation and is on a bowel regimen. He did not need surgery for the thoracic compression fracture but has been placed in a clamshell TLSO, and he is nonweightbearing on the left lower extremity. PRECAUTIONS: He is a fall risk, and he has orthopedic precautions with nonweightbearing on the left lower extremity. ACTIVE COMORBIDITIES: He has no active tier 1, tier 2, or tier 3 comorbidities. PAST MEDICAL HISTORY: 1. Autism spectrum disorder. 2. Right upper extremity fracture when he was 6 years old. 3. Anxiety. 4. 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 PAST SURGICAL HISTORY: He has had a left inguinal hernia repair. PRE-HOSPITAL MEDICATIONS: He was using medical marijuana. ADMISSION MEDICATIONS: 1. Oxycodone continuous release 20 mg p.o. b.i.d. 2. Oxycodone immediate release 5-15 mg p.o. q.3 hours p.r.n. 3. Polyethylene glycol 17 g p.o. daily p.r.n. 4. Senna/docusate 1-2 p.o. b.i.d. p.r.n. 5. Zolpidem 5-10 mg p.o. q.h.s. p.r.n. ALLERGIES: There are no known drug allergies. FAMILY HISTORY: Noncontributory. SOCIAL HISTORY: He is single. He lives with roommates. He works in the marijuana industry. He otherwise is a nonsmoker and does not use excessive alcohol. There are 4 steps to get into the home. REVIEW OF SYSTEMS: He reports a volitional 75-pound weight loss over a period of 3 years. He reports overall adequate pain control, though he has had some discomfort at night. He reports that at home he typically sleeps in a recliner , and if he tries to sleep flat he gets back pain prior to his injury. He has not had active issues with anxiety for as long as about a year. He has had insomnia, and the zolpidem has been effective in assisting with sleep. He had constipation, and now he has flatulence. He generally has a reduced appetite. He reports he does not eat for pleasure but eats because he needs nutrition and has a fairly limited diet. He has protein shakes, and he has brought in the protein powder that he consumes several times a day. He eats gandhi, and there are other dietary preferences. He had urinary retention in the hospital, which required catheterization. He wonders if it is positional. Also it was thought possibly to be related to opiate use. On review of his MAR from the hospital, there do not appear to be other medications which may have caused urinary retention. He has multiple abrasions on his skin. Other than his ankle fracture, he denies joint pain and joint swelling. Other than the abrasions, he denies skin rashes and skin breakdown. Otherwise, a 10-point review of systems was negative. PHYSICAL EXAMINATION: VITAL SIGNS: Blood pressure is 113/80, heart rate is 86 , respiratory rate is 14, oxygen saturation is 99% on room air, temperature is 36.8 degrees centigrade. His weight is 68.5 kg for a body mass index of 23. GENERAL: This is a well-nourished, well-developed man, who appears his chronologic age, cooperative and in no acute distress. He has a somewhat flat affect, and his hair is dyed pink. HEENT: Extraocular movements are intact. Pupils are equal, round, and reactive to light. Mucous membranes are moist. Dentition is in good condition. NECK: Supple. HEART: There is a regular rate and rhythm with no murmurs, rubs, or gallops. LUNGS: Clear to auscultation bilaterally. ABDOMEN: Soft, nontender, nondistended with normoactive bowel sounds and no hepatosplenomegaly. EXTREMITIES: There is no cyanosis, clubbing, or edema. There is minor swelling to the toes on the left foot. The left foot and ankle and lower leg are wrapped in an Braulio wrap. External fixator is in place. Toes are warm and mobile with normal capillary refill. NEUROLOGIC: He is alert and oriented x3. Cranial nerves 2-12 are grossly intact. There is no focal weakness, and sensation is intact to light touch. CURRENT LEVEL OF FUNCTION: Per the preadmission screen: Regarding diet, feeding, and swallowing, he required setup and was on a regular diet. For grooming, he required set up. For bathing he needed assistance. For dressing he needed total assistance with the TLSO brace and with dressing. For toileting he needed assistance for bed mobility, he required minimal assistance of 2 persons; however, on exam today, he was able to roll over in bed with no assistance. Transfers required minimal assist of 2 persons. Balance was poor. Endurance was poor. Regarding gait, he needed minimal assistance for ambulation with a 2-person assist. Communication and cognition were noted to be within normal limits. IMPRESSION: Mr. Carmen is a 31-year-old man who sustained a 35-foot fall in a rock climbing gym and suffered a left tibia and fibular fracture on 11/29/16. He was taken to surgery on 11/30/2016 where he had open reduction and internal fixation of the left fibula and placement of a large external fixator. The surgical plan is to return to surgery on December 15 for open reduction/internal fixation of the left tibia. He also suffered a thoracic T12 compression fracture, for which he is treated with a TLSO clamshell brace. He is nonweightbearing on the left lower extremity. He has had issues with pain control and with constipation. He is appropriate for inpatient rehabilitation where he will benefit from the services of physical and occupational therapy to optimize his mobility and activities of daily living, given his spinal and orthopedic restrictions. He will benefit from nursing care regarding skin integrity, wound healing, bowel and bladder, and fall risk. He will benefit from the care of the physician for pain management, laxatives, and attention to anxiety state if it is to recur. His goal is to return to his home with his roommates. For a safe discharge, he will need to achieve modified independence for wheelchair mobility and transfers and for activities of daily living. He will need to be independent with medication management. He, his family, and possibly his friends, will need training as needed for transfers and mobility. He will have therapy with physical therapy and occupational therapy for 60-90 minutes per day for each discipline on 5-7 days of the week. His expected duration of stay is 12-14 days. It is anticipated that upon discharge he will continue to benefit from home health services, including a nurse's aide, occupational therapy, and physical therapy. ASSESSMENT AND PLAN: 1. Multiple trauma with T12 compression fracture and left tibia and fibular fracture; nonweightbearing on the left lower extremity and with spinal precautions. Physical therapy and occupational therapy to optimize his mobility and activities of daily living with the goal to achieve modified independence at the wheelchair level. 2. Pain control. Continue medications as ordered out of the hospital of oxycodone continuous release 20 mg b.i.d. and oxycodone immediate release 5-15 mg q.3 hours as needed. He will have serial assessments of pain control and adjustments of medications as indicated. 3. Urinary retention noted in the hospital. Will initiate a rehabilitation bladder scan with time to voiding, ultrasound bladder scans for postvoid residual, and catheterization if he is retaining more than 400 cc. The etiology of the retention is unclear. Possibly it will improve with effective treatment of his constipation. 4. Constipation. Will schedule polyethylene glycol as well as senna. Will discontinue the senna docusate as the docusate is not helpful, and will offer a bisacodyl suppository on an as-needed basis. 5. He is at elevated risk for deep venous thrombosis and at low risk for bleeding. Enoxaparin will be continued until his mobility improves or until 3- 4 weeks after his injury. 6. Rope burn wound care orders have been received from the wound nurse and will be continued. Follow-up with Orthopedic Surgery for ORIF of the left tibial fracture on . Follow-up Dr. Elam, Neurosurgery, 2 weeks from hospital discharge, approximately 12/17/16. /[id number]/MODL MTDD
[2016-12-03] MEDS: oxyCODONE IR 5 MG TAB PO PRN (19:46)
[2016-12-03] MEDS: BACITRACIN OINTMENT 1 PACKET TP SCH (19:51)
[2016-12-03] MEDS: SENNOSIDES 1 TAB PO SCH (20:57)
[2016-12-03] MEDS: ACETAMINOPHEN 325 MG TAB PO PRN (23:25)
[2016-12-04] MEDS: oxyCODONE IR 5 MG TAB PO PRN ×4 (00:50→12:58)
[2016-12-04] MEDS: IBUPROFEN 600 MG TAB PO PRN (07:22)
[2016-12-04] MEDS: ENOXAPARIN 40 MG/0.4 ML SYR SC SCH (07:58)
[2016-12-04] MEDS: BACITRACIN OINTMENT 1 PACKET TP SCH ×2 (07:58→21:36)
[2016-12-04] MEDS: SENNOSIDES 1 TAB PO SCH ×2 (07:59→21:08)
[2016-12-04] MEDS: POLYETHYLENE GLYCOL 3350 17 GM PKT PO SCH (07:59)
[2016-12-04 09:04] LABS: % IMMATURE GRANULYOCYTES 0.3 % (0.0-1.1); ABSOLUTE IMMATURE GRANULOCYTES 0.02 10^3/uL (0.00-0.10); ADD DIFF? NO; ADD MORPH? NO; ADD SCAN? NO; ATYPICAL LYMPHOCYTE FLAG 30 (0-99); FRAGMENT RBC FLAG 0 (0-99); HEMOGLOBIN 13.1 g/dL (13.7-17.5); LEFT SHIFT FLG 0 (0-99); LIPEMIA HEMOLYSIS FLAG 90 (0-99); MEAN CELL HEMOGLOBIN 30.5 pg (27.9-34.1); MEAN CELL HEMOGLOBIN CONCENTR. 34.5 g/dL (32.4-36.7); MEAN CELL VOLUME 88.6 fL (81.5-99.8); MEAN PLATELET VOLUME 11.7 fL (8.7-11.7); PLATELET CLUMPS FLAG 0 (0-99); PLATELET COUNT 185 10^3/uL (150-400); RED BLOOD CELL COUNT 4.29 10^6/uL (4.40-6.38); RED CELL DISTRIBUTION WIDTH 12.8 % (11.5-15.2)
[2016-12-04] MEDS ORDERED: MAGNESIUM HYDROXIDE 30 ML UDCUP PO PRN (09:33)
--- NOTE | 2016-12-04 09:33 | SOAPPROG ---
SOAP Progress Note Assessment/Plan: Assessment: * Multiple trauma with T12 compression fracture and left tibia and fibular fracture; nonweightbearing on the left lower extremity and with spinal precautions. Physical therapy and occupational therapy to optimize his mobility and activities of daily living with the goal to achieve modified independence at the wheelchair level. * Pain control. Inadequate overnight. Increase HS oxycodone CR to 30 mg; continue 20 mg QAM, * Urinary retention noted in the hospital. Rehabilitation bladder scan with time to voiding, ultrasound bladder scans for postvoid residual, and catheterization if he is retaining more than 400 cc. Required catheterization yesterday evening 12/03/16. Tiral of tamsulosin. UA and culture if indicated to r/o UTI. * Constipation. Will schedule polyethylene glycol as well as senna. Bisacodyl suppository on an as-needed basis. * He is at elevated risk for deep venous thrombosis and at low risk for bleeding. Enoxaparin will be continued until his mobility improves or until 3- 4 weeks after his injury. * Rope burn wound care orders have been received from the wound nurse and will be continued. Abrasion on R palm does not appear infected on 12/04/16. Follow-up with Orthopedics for ORIF left tibia 12/15/16. Follow-up with Dr. Elam, Neurosurgery 2 weeks from hospital discharge, approximately 12/17/16. 12/04/16 10:37 12/04/16 11:05 Subjective: Reports poor sleep due to low back pain and episode of "sweating bullets." Unable to urinate and has been catheterized. Does not think he has constipation as he's not had much to eat and has flatulence. Declined suppository. Appetite OK and friend bringing in backed chicken. Objective: Vital Signs Temp Pulse Resp BP Pulse Ox 36.8 C 82 20 104/69 92 12/04/16 07:19 12/04/16 07:19 12/04/16 07:19 12/04/16 07:19 12/04/16 07:19 Laboratory Results 12/04/16 08:00 12/03/16 12/04/16 12/05/16 05:59 05:59 05:59 Intake Total 300 500 Output Total 1150 650 Balance -850 -150 Physical Exam - Physical Exam General Appearance: WD/WN, alert, no apparent distress Respiratory: No respiratory distress, No accessory muscle use Skin: normal color, warm/dry, other (Abrasion R thenar eminence approx 1/2 cm with eschar, minimal surrounding erythema, no purulence) Neuro/Psych: no motor/sensory deficits, alert, normal mood/affect, oriented x 3 ICD10 Worksheet Patient Problems: Problems Problem Status Onset Activity, mountain climbing, rock climbing and wall climbing Acute Ankle fracture Acute Fall involving playground climbing apparatus as cause of accidental injury Acute T12 compression fracture Acute Tibia/fibula fracture Acute
[2016-12-04 09:34] LABS: ALANINE AMINOTRANSFERASE 78 IU/L (21-72); ALBUMIN 3.7 g/dL (3.5-5.0); ALKALINE PHOSPHATASE 59 IU/L (38-126); ANION GAP 15 mEq/L (8-16); ASPARTATE AMINOTRANSFERASE 50 IU/L (17-59); BILIRUBIN,TOTAL 1.4 mg/dL (0.1-1.4); CALCIUM 9.7 mg/dL (8.5-10.4); CARBON DIOXIDE 24 mEq/l (22-31); CHLORIDE 96 mEq/L (97-110); CREATININE 0.8 mg/dL (0.7-1.3); GLOMERULAR FILTRATION RATE > 60; GLUCOSE 81 mg/dL (70-100); POTASSIUM 4.5 mEq/L (3.5-5.2); SODIUM 135 mEq/L (134-144); TOTAL PROTEIN 6.8 g/dL (6.3-8.2)
[2016-12-04 09:45] LABS: VITAMIN D 25-HYDROXY TOTAL 13.7 ng/mL (30-100)
[2016-12-04] MEDS ORDERED: MAGNESIUM HYDROXIDE 30 ML UDCUP ONE (10:12)
[2016-12-04] MEDS: TAMSULOSIN HCL 0.4 MG CAP PO SCH (10:13)
[2016-12-04] MEDS: ACETAMINOPHEN 325 MG TAB PO PRN ×2 (12:57→17:25)
[2016-12-04 13:41] LABS: COLOR YELLOW; LEUKOCYTE ESTERASE,URINE NEGATIVE (NEGATIVE); NITRITE,URINE NEGATIVE (NEGATIVE)
[2016-12-04] MEDS: LORazepam 1 MG TAB PO PRN (21:36)
[2016-12-05] MEDS: oxyCODONE IR 5 MG TAB PO PRN ×2 (01:57→09:29)
[2016-12-05] MEDS: LORazepam 1 MG TAB PO PRN (08:11)
[2016-12-05] MEDS: ENOXAPARIN 40 MG/0.4 ML SYR SC SCH (08:20)
--- NOTE | 2016-12-05 08:53 | SOAPPROG ---
SOAP Progress Note Assessment/Plan: * Multiple trauma with T12 compression fracture and left tibia and fibular fracture; nonweightbearing on the left lower extremity and with spinal precautions. Physical therapy and occupational therapy to optimize his mobility and activities of daily living with the goal to achieve modified independence at the wheelchair level. * Pain control. Good control at Oxycodone CR to 20mg q am and 30mg qHS * Urinary retention noted in the hospital. Rehabilitation bladder scan with time to voiding, ultrasound bladder scans for postvoid residual, and catheterization if he is retaining more than 400 cc. Required catheterization yesterday evening 12/03/16. Tiral of tamsulosin. UA and culture if indicated to r/o UTI. * Constipation. Will schedule polyethylene glycol as well as senna. Bisacodyl suppository on an as-needed basis. * He is at elevated risk for deep venous thrombosis and at low risk for bleeding. Enoxaparin will be continued until his mobility improves or until 3- 4 weeks after his injury. * Rope burn wound care orders have been received from the wound nurse and will be continued. Abrasion on R palm does not appear infected on 12/04/16. Follow-up with Orthopedics for ORIF left tibia 12/15/16. Follow-up with Dr. Elam, Neurosurgery 2 weeks from hospital discharge, approximately 12/17/16. Subjective: No acute events, pain better controlled this a.m. No complaints. Denies SOB/F/C. Objective: Vital Signs Temp Pulse Resp BP Pulse Ox 36.3 C 82 16 108/69 93 12/05/16 06:54 12/05/16 06:54 12/05/16 06:54 12/05/16 06:54 12/05/16 06:54 Laboratory Results 12/04/16 08:00 12/04/16 08:00 12/04/16 12/05/16 12/06/16 05:59 05:59 05:59 Intake Total 300 1880 Output Total 1150 2100 550 Balance -850 -220 -550 - Pending Discharge Pending Discharge Within 24 Hours: No Pending Discharge Within 48 Hours: No Physical Exam - Physical Exam General Appearance: alert, no apparent distress EENT: No hearing deficit Neck: supple Respiratory: lungs clear, normal breath sounds Cardiac/Chest: regular rate, rhythm Abdomen: normal bowel sounds, non-tender Skin: normal color, warm/dry Extremities: other (Left Ex-fix in place, neurovascular intact distal) Neuro/Psych: alert, normal mood/affect, oriented x 3, No cognition abnormalities , No speech abnormalities ICD10 Worksheet Patient Problems: Problems Problem Status Onset Activity, mountain climbing, rock climbing and wall climbing Acute Ankle fracture Acute Fall involving playground climbing apparatus as cause of accidental injury Acute T12 compression fracture Acute Tibia/fibula fracture Acute
[2016-12-05] MEDS: ACETAMINOPHEN 325 MG TAB PO PRN ×3 (09:29→21:47)
[2016-12-05] MEDS: BACITRACIN OINTMENT 1 PACKET TP SCH ×2 (11:40→21:23)
[2016-12-05] MEDS: POLYETHYLENE GLYCOL 3350 17 GM PKT PO SCH (11:45)
[2016-12-05] MEDS: TAMSULOSIN HCL 0.4 MG CAP PO SCH (11:46)
[2016-12-05] MEDS ORDERED: TAMSULOSIN HCL 0.4 MG CAP PO ONE (13:15)
[2016-12-05] MEDS: ONDANSETRON DISINTEGRATING 4 MG TAB PO PRN (15:05)
[2016-12-05] MEDS: SENNOSIDES 1 TAB PO SCH ×2 (16:23→21:23)
[2016-12-06] MEDS: ACETAMINOPHEN 325 MG TAB PO PRN ×3 (02:44→21:17)
--- NOTE | 2016-12-06 08:22 | SOAPPROG ---
SOAP Progress Note Assessment/Plan: * Multiple trauma with T12 compression fracture and left tibia and fibular fracture; nonweightbearing on the left lower extremity and with spinal precautions. Physical therapy and occupational therapy to optimize his mobility and activities of daily living with the goal to achieve modified independence at the wheelchair level. * Pain control. Good control at Oxycodone CR to 20mg q am and 30mg qHS * Urinary retention. Rehabilitation bladder scan with time to voiding, ultrasound bladder scans for postvoid residual, and catheterization if he is retaining more than 400 cc. Requiring repeat caths, last for volume ~900cc, likely opioid and benzo induced, no s+s of infection. Will increase flomax to 0.8mg, encourage OOB * Constipation. Will schedule polyethylene glycol as well as senna. Bisacodyl suppository on an as-needed basis. * He is at elevated risk for deep venous thrombosis and at low risk for bleeding. Enoxaparin will be continued until his mobility improves or until 3- 4 weeks after his injury. * Rope burn wound care orders have been received from the wound nurse and will be continued. Abrasion on R palm does not appear infected on 12/04/16. Follow-up with Orthopedics for ORIF left tibia 12/15/16. Follow-up with Dr. Elam, Neurosurgery 2 weeks from hospital discharge, approximately 12/17/16. Subjective: Still retaining signifcant amounts of urine, had to have IC last night. Highly anxious and frustrated with situation but encourage patience. Denies dysuria, fevers, chills. Objective: Vital Signs Temp Pulse Resp BP Pulse Ox 36.8 C 70 18 113/66 94 12/05/16 19:21 12/05/16 19:21 12/05/16 19:21 12/05/16 19:21 12/05/16 19:21 Laboratory Results 12/04/16 08:00 12/04/16 08:00 12/05/16 12/06/16 12/07/16 05:59 05:59 05:59 Intake Total 1880 1500 Output Total 2100 1500 Balance -220 0 - Pending Discharge Pending Discharge Within 24 Hours: No Pending Discharge Within 48 Hours: No Physical Exam - Physical Exam General Appearance: alert, no apparent distress Neck: supple Respiratory: lungs clear, normal breath sounds Cardiac/Chest: regular rate, rhythm Abdomen: normal bowel sounds, non-tender, soft Skin: normal color, warm/dry Neuro/Psych: alert, normal mood/affect, oriented x 3, No cognition abnormalities , No speech abnormalities ICD10 Worksheet Patient Problems: Problems Problem Status Onset Activity, mountain climbing, rock climbing and wall climbing Acute Ankle fracture Acute Fall involving playground climbing apparatus as cause of accidental injury Acute T12 compression fracture Acute Tibia/fibula fracture Acute
[2016-12-06] MEDS: ONDANSETRON DISINTEGRATING 4 MG TAB PO PRN ×2 (08:38→14:33)
[2016-12-06] MEDS: ENOXAPARIN 40 MG/0.4 ML SYR SC SCH (08:44)
[2016-12-06] MEDS: TAMSULOSIN HCL 0.4 MG CAP PO SCH (10:12)
[2016-12-06] MEDS: POLYETHYLENE GLYCOL 3350 17 GM PKT PO SCH (10:15)
[2016-12-06] MEDS: BACITRACIN OINTMENT 1 PACKET TP SCH ×2 (10:16→21:18)
[2016-12-06] MEDS: SENNOSIDES 1 TAB PO SCH ×2 (13:21→21:17)
[2016-12-06] MEDS: IBUPROFEN 600 MG TAB PO PRN (15:55)
[2016-12-07] MEDS: IBUPROFEN 600 MG TAB PO PRN ×3 (01:46→20:39)
[2016-12-07] MEDS: LORazepam 1 MG TAB PO PRN (01:49)
[2016-12-07] MEDS: POLYETHYLENE GLYCOL 3350 17 GM PKT PO SCH (08:26)
[2016-12-07] MEDS: ENOXAPARIN 40 MG/0.4 ML SYR SC SCH (08:26)
[2016-12-07] MEDS: BACITRACIN OINTMENT 1 PACKET TP SCH ×2 (08:26→20:40)
[2016-12-07] MEDS: SENNOSIDES 1 TAB PO SCH ×2 (08:27→20:39)
[2016-12-07] MEDS: TAMSULOSIN HCL 0.4 MG CAP PO SCH (08:28)
[2016-12-07] MEDS: ONDANSETRON DISINTEGRATING 4 MG TAB PO PRN ×2 (08:31→20:40)
--- NOTE | 2016-12-07 09:38 | SOAPPROG ---
SOAP Progress Note Assessment/Plan: Assessment: * Multiple trauma with T12 compression fracture and left tibia and fibular fracture; nonweightbearing on the left lower extremity and with spinal precautions. Initial FIM92 on 12/07/16. ABle to ambulate safely with FWW. Can don and doff TLSO indeoendently, except needs assistance if he does it supine to get brace positioned on back. Physical therapy and occupational therapy to optimize his mobility and activities of daily living with the goal to achieve modified independence at the wheelchair level. * Pain control. Pain is improving. No HS oxycodone SR last night 12/06/16; continues 20 mg QAM, Using acetaminophen and ibuprofen. Not used oxycodone IR since moring of 12/05/16. * Urinary retention noted in the hospital. Rehabilitation bladder scan with time to voiding, ultrasound bladder scans for postvoid residual, and catheterization if he is retaining more than 400 cc. Required catheterization yesterday evening 12/03/16. Trial of tamsulosin. UA neg. Improved after titration of tamsulosin to 0.8 mg QD on 12/06/16. * Constipation. Will schedule polyethylene glycol as well as senna. Bisacodyl suppository on an as-needed basis. * Anxiety. Using PRN lorazepam. * He is at elevated risk for deep venous thrombosis and at low risk for bleeding. Enoxaparin will be continued until his mobility improves or until 3- 4 weeks after his injury. * Rope burn wound care orders have been received from the wound nurse and will be continued. Abrasion on R palm does not appear infected on 12/04/16. Follow-up with Orthopedics for ORIF left tibia 12/15/16. Follow-up with Dr. Elam, Neurosurgery 2 weeks from hospital discharge, approximately 12/17/16. Attended staffing, 15 min. D/W case mgmt, nursing, PT, OT. Lives with room- mates, won't need much help. Employer supportive. Plan for discharge home 12/11. Home PT & OT. 12/07/16 11:28 Subjective: No complaints. Declined oxycodone SR dose last night due to concern re urinary retention. Now voiding better. Took acetaminophen overnight for R foot throbbing. No cough/dyspnea, f/c. Continues with reduced appetite. Last BM 2 days ago. Feels he's voiding better. Objective: Vital Signs Temp Pulse Resp BP Pulse Ox 37.0 C 73 16 114/71 97 12/06/16 19:15 12/06/16 19:15 12/06/16 19:15 12/06/16 19:15 12/06/16 19:15 Laboratory Results 12/04/16 08:00 12/04/16 08:00 12/06/16 12/07/16 12/08/16 05:59 05:59 05:59 Intake Total 1500 1900 Output Total 1500 Balance 0 1900 - Time Spent With Patient Time Spent With Patient: Greater than 35 minutes floor time today, including more than 50% of time incoordination of care during staffing, and counseling patient. Physical Exam - Physical Exam General Appearance: WD/WN, alert, no apparent distress Respiratory: No respiratory distress, No accessory muscle use Skin: normal color, warm/dry Extremities: other (L foot in desmond wrap, external fixator in polace. Toes with mild swelling, NT, warm, motile.) Neuro/Psych: normal mood/affect, oriented x 3 ICD10 Worksheet Patient Problems: Problems Problem Status Onset Activity, mountain climbing, rock climbing and wall climbing Acute Ankle fracture Acute Fall involving playground climbing apparatus as cause of accidental injury Acute T12 compression fracture Acute Tibia/fibula fracture Acute
[2016-12-08] MEDS: IBUPROFEN 600 MG TAB PO PRN ×2 (05:14→16:20)
[2016-12-08] MEDS: TAMSULOSIN HCL 0.4 MG CAP PO SCH (09:13)
[2016-12-08] MEDS: BACITRACIN OINTMENT 1 PACKET TP SCH ×2 (09:13→21:08)
[2016-12-08] MEDS: SENNOSIDES 1 TAB PO SCH ×2 (09:13→21:08)
[2016-12-08] MEDS: ENOXAPARIN 40 MG/0.4 ML SYR SC SCH (09:13)
[2016-12-08] MEDS: POLYETHYLENE GLYCOL 3350 17 GM PKT PO SCH ×2 (09:20→15:46)
--- NOTE | 2016-12-08 14:58 | SOAPPROG ---
SOAP Progress Note Assessment/Plan: Assessment: * Multiple trauma with T12 compression fracture and left tibia and fibular fracture; nonweightbearing on the left lower extremity and with spinal precautions. Initial FIM 92 on 12/07/16. ABle to ambulate safely with FWW. Can don and doff TLSO independently, except needs assistance if he does it supine to get brace positioned on back. Continue physical therapy and occupational therapy to optimize his mobility and activities of daily living with the goal to achieve modified independence at the wheelchair level. * Pain control. Pain is improving. Not needing HS oxycodone SR; continues 20 mg QAM, Using acetaminophen and ibuprofen. Not used oxycodone IR since moring of 12/05/16. * Urinary retention noted in the hospital. Rehabilitation bladder scan with time to voiding, ultrasound bladder scans for postvoid residual, and catheterization if he is retaining more than 400 cc. Required catheterization yesterday evening 12/03/16. Trial of tamsulosin. UA neg. Improved after titration of tamsulosin to 0.8 mg QD on 12/06/16. * Constipation. D/C polyethylene glycol 12/08/16; continue senna & MOM. Bisacodyl suppository on an as-needed basis. * Anxiety. Using PRN lorazepam. * He is at elevated risk for deep venous thrombosis and at low risk for bleeding. Enoxaparin will be continued until his mobility improves or until 3- 4 weeks after his injury. * Rope burn wound care orders have been received from the wound nurse and will be continued. Abrasion on R palm does not appear infected on 12/04/16. Follow-up with Orthopedics for ORIF left tibia 12/15/16. Follow-up with Dr. Elam, Neurosurgery 2 weeks from hospital discharge, approximately 12/17/16. Lives with room-mates, won't need much help. Employer supportive. Plan for discharge home 12/11/16. Home PT & OT. 12/08/16 15:00 Subjective: Upset re issues of insurance coverage between [place] and [place]. manager outreach is working on it. Continues reduced appetite and no BM for days. Dislikes Miralax. Pain improved; not using pain meds overnight. Objective: Vital Signs Temp Pulse Resp BP Pulse Ox 36.3 C 72 18 118/73 93 12/08/16 05:13 12/08/16 05:13 12/08/16 05:13 12/08/16 05:13 12/08/16 05:13 Laboratory Results 12/04/16 08:00 12/04/16 08:00 12/07/16 12/08/16 12/09/16 05:59 05:59 05:59 Intake Total 1900 1100 240 Balance 1900 1100 240 Physical Exam - Physical Exam General Appearance: WD/WN, alert, no apparent distress Respiratory: No respiratory distress, No accessory muscle use Abdomen: normal bowel sounds, non-tender, soft, No distended, No mass Neuro/Psych: no motor/sensory deficits, alert, normal mood/affect, oriented x 3 ICD10 Worksheet Patient Problems: Problems Problem Status Onset Activity, mountain climbing, rock climbing and wall climbing Acute Ankle fracture Acute Fall involving playground climbing apparatus as cause of accidental injury Acute T12 compression fracture Acute Tibia/fibula fracture Acute
[2016-12-09] MEDS: ENOXAPARIN 40 MG/0.4 ML SYR SC SCH (08:35)
[2016-12-09] MEDS: BACITRACIN OINTMENT 1 PACKET TP SCH ×2 (08:35→21:23)
[2016-12-09] MEDS: TAMSULOSIN HCL 0.4 MG CAP PO SCH (09:47)
[2016-12-09] MEDS: SENNOSIDES 1 TAB PO SCH ×2 (10:55→21:23)
--- NOTE | 2016-12-09 11:00 | SOAPPROG ---
SOAP Progress Note Assessment/Plan: Assessment: * Multiple trauma with T12 compression fracture and left tibia and fibular fracture; nonweightbearing on the left lower extremity and with spinal precautions. Initial FIM 92 on 12/07/16. Able to ambulate safely with FWW. Can don and doff TLSO independently, except needs assistance if he does it supine to get brace positioned on back. Continue physical therapy and occupational therapy to optimize his mobility and activities of daily living with the goal to achieve modified independence at the wheelchair level. * Pain control. Pain is improving. Not needing HS oxycodone SR; discontinue 20 mg QAM starting 12/10/16, Using acetaminophen and ibuprofen. Not used oxycodone IR since morning of 12/05/16. * Urinary retention noted in the hospital. Rehabilitation bladder scan with time to voiding, ultrasound bladder scans for postvoid residual, and catheterization if he is retaining more than 400 cc. Required catheterization yesterday evening 12/03/16. Trial of tamsulosin. UA neg. Improved after titration of tamsulosin to 0.8 mg QD on 12/06/16. * Constipation. D/C polyethylene glycol 12/08/16; continue senna & MOM. Bisacodyl suppository on an as-needed basis. * Anxiety. Using PRN lorazepam. * He is at elevated risk for deep venous thrombosis and at low risk for bleeding. Enoxaparin will be continued until-4 weeks after his injury, 12/27/16. * Rope burn wound care orders have been received from the wound nurse and will be continued. Abrasion on R palm does not appear infected on 12/04/16. Follow-up with Orthopedics for ORIF left tibia 12/15/16. Follow-up with Dr. Elam, Neurosurgery 2 weeks from hospital discharge, approximately 12/17/16. Lives with room-mates, won't need much help. Employer supportive. Plan for discharge home 12/11/16. Home PT & OT. Mr. Carmen needs a front-wheeled walker. He has a mobility limitation which significantly impairs one or more mobility-related ADLs in the home, and he can use the walker safely, and his functional mobility deficit cannot be resolved with a cane. 12/09/16 10:59 Subjective: NO complaints. Slept well. Adequate pain control, using no PRN oxycodone. Concerned re when he will be able to weight-bear and return to work after next surgery. Objective: Vital Signs Temp Pulse Resp BP Pulse Ox 36.5 C 72 18 120/86 H 97 12/09/16 07:59 12/09/16 07:59 12/09/16 07:59 12/09/16 07:59 12/09/16 07:59 Laboratory Results 12/04/16 08:00 12/04/16 08:00 12/08/16 12/09/16 12/10/16 05:59 05:59 05:59 Intake Total 1100 1540 300 Output Total 300 Balance 1100 1240 300 Physical Exam - Physical Exam General Appearance: WD/WN, alert, no apparent distress Respiratory: No accessory muscle use, No decreased breath sounds Skin: normal color, warm/dry Neuro/Psych: no motor/sensory deficits, alert, normal mood/affect, oriented x 3 ICD10 Worksheet Patient Problems: Problems Problem Status Onset Activity, mountain climbing, rock climbing and wall climbing Acute Ankle fracture Acute Fall involving playground climbing apparatus as cause of accidental injury Acute T12 compression fracture Acute Tibia/fibula fracture Acute
[2016-12-09] MEDS: IBUPROFEN 600 MG TAB PO PRN (14:47)
[2016-12-10] MEDS: IBUPROFEN 600 MG TAB PO PRN ×4 (00:39→23:50)
[2016-12-10] MEDS: ENOXAPARIN 40 MG/0.4 ML SYR SC SCH (09:39)
[2016-12-10] MEDS: BACITRACIN OINTMENT 1 PACKET TP SCH ×2 (09:39→19:49)
[2016-12-10] MEDS: TAMSULOSIN HCL 0.4 MG CAP PO SCH (09:40)
[2016-12-10] MEDS: SENNOSIDES 1 TAB PO SCH ×2 (09:40→19:49)
--- NOTE | 2016-12-10 12:00 | SOAPPROG ---
SOAP Progress Note Assessment/Plan: Assessment: * Multiple trauma with T12 compression fracture and left tibia and fibular fracture; nonweightbearing on the left lower extremity and with spinal precautions. Initial FIM 92 on 12/07/16. Able to ambulate safely with FWW. Can don and doff TLSO independently, except needs assistance if he does it supine to get brace positioned on back. Continue physical therapy and occupational therapy to optimize his mobility and activities of daily living with the goal to achieve modified independence at the wheelchair level. ORIF L tibia planned for 12/15/16. * Pain control. Pain is improving. Not needing HS oxycodone SR; discontinue 20 mg QAM starting 12/10/16, Using acetaminophen and ibuprofen. Not used oxycodone IR since morning of 12/05/16. * Urinary retention noted in the hospital. Rehabilitation bladder scan with time to voiding, ultrasound bladder scans for postvoid residual, and catheterization if he is retaining more than 400 cc. Required catheterization yesterday evening 12/03/16. Trial of tamsulosin. UA neg. Improved after titration of tamsulosin to 0.8 mg QD on 12/06/16. * Constipation. D/C polyethylene glycol 12/08/16; continue senna & MOM. Bisacodyl suppository on an as-needed basis. * Anxiety. Using PRN lorazepam. * He is at elevated risk for deep venous thrombosis and at low risk for bleeding. He has a needle phobia and will not self-administer enoxaparin. D/W [facility] and discharge pharmacy: will discharge with dabigatran 75 mg 3 capsules QD except hold the day before and day of surgery; resume after surgery 150 mg then 225 mg the next day through 12/27/16. Cautioned re increased bleeding risk with ibuprofen. * Rope burn wound care orders have been received from the wound nurse and will be continued. Abrasion on R palm does not appear infected on 12/04/16. Follow-up with Orthopedics for ORIF left tibia 12/15/16. Follow-up with Dr. Elam, Neurosurgery 2 weeks from hospital discharge, approximately 12/17/16. Lives with room-mates, won't need much help. Employer supportive. Plan for discharge home 12/11/16. Home PT & OT. Mr. Carmen needs a front-wheeled walker. He has a mobility limitation which significantly impairs one or more mobility-related ADLs in the home, and he can use the walker safely, and his functional mobility deficit cannot be resolved with a cane. 12/10/16 11:57 Subjective: No complaints. Had shower today. Pain adequately controlled, slept well. Happy to be going home tomorrow. Objective: Vital Signs Temp Pulse Resp BP Pulse Ox 36.5 C 68 16 120/78 98 12/10/16 08:00 12/10/16 08:00 12/10/16 08:00 12/10/16 08:00 12/10/16 08:00 Laboratory Results 12/04/16 08:00 12/04/16 08:00 12/09/16 12/10/16 12/11/16 05:59 05:59 05:59 Intake Total 1540 850 Output Total 300 Balance 1240 850 Physical Exam - Physical Exam General Appearance: WD/WN, alert, no apparent distress Respiratory: No respiratory distress, No accessory muscle use Skin: normal color, warm/dry Neuro/Psych: no motor/sensory deficits, alert, normal mood/affect, oriented x 3 ICD10 Worksheet Patient Problems: Problems Problem Status Onset Activity, mountain climbing, rock climbing and wall climbing Acute Ankle fracture Acute Fall involving playground climbing apparatus as cause of accidental injury Acute T12 compression fracture Acute Tibia/fibula fracture Acute
[2016-12-10] MEDS: ONDANSETRON DISINTEGRATING 4 MG TAB PO PRN (19:16)
[2016-12-11 07:32] VITALS: BP 126/70; PULSE 79; RESP 18; TEMP 98.1; O2SAT 96
[2016-12-11] MEDS: TAMSULOSIN HCL 0.4 MG CAP PO SCH (08:01)
[2016-12-11] MEDS: ENOXAPARIN 40 MG/0.4 ML SYR SC SCH (08:02)
[2016-12-11] MEDS: SENNOSIDES 1 TAB PO SCH (08:02)
[2016-12-11] MEDS: BACITRACIN OINTMENT 1 PACKET TP SCH (08:06)
[2016-12-11] MEDS: IBUPROFEN 600 MG TAB PO PRN (09:08)
[2016-12-11] MEDS: ONDANSETRON DISINTEGRATING 4 MG TAB PO PRN (09:19)
--- NOTE | 2016-12-11 10:03 | PDOREHIP ---
Admission [facility] - Admission - 3 Day Assessment Period Admission Date/Day 1: 12/03/16 Day 2: 12/04/16 Day 3: 12/05/16 Discharge [facility] - Discharge - 3 Day Assessment Period 2 Days Prior to Anticipated Discharge Date: 12/09/16 1 Day Prior to Anticipated Discharge Date: 12/10/16 Anticipated Discharge Date: 12/11/16 - Discharge Skin Conditions Unhealed Pressure Ulcer (1 or more/Stage 1 or >)-Discharge: 0. No
--- NOTE | 2016-12-11 18:19 | GDS ---
[f rep st] DISCHARGE SUMMARY ADMITTING DIAGNOSIS: Multiple trauma with left tibia and fibula fracture and T12 compression fracture. DISCHARGE DIAGNOSIS: Multiple trauma with left tibia and fibula fracture and T12 compression fracture. OTHER DISCHARGE DIAGNOSES: 1. Urinary retention due to opiates. 2. Constipation. 3. Rope burn wounds. CONSULTATIONS: None. PROCEDURES: None. COMPLICATIONS: None. HISTORY AND HOSPITAL COURSE: Mr. Carmen suffered a fall at an indoor climbing wall where he had failed to clip into the [employer] device. He fell approximately 35 feet and suffered left tibia and fibula fractures, as well as a T12 compression fracture. The injuries happened on 11/29/2016. He underwent surgery the next day, 11/30/2016, with ORIF of the fractured fibula and an external fixator placed for the fractured tibia. He was treated with a TLSO brace for the compression fracture. His condition was stabilized, and he was discharged to inpatient rehabilitation. He had steady improvement in his function. His initial functional independence measure was 92 on 12/07/2016. He was able to ambulate safely with a front- wheeled walker and no weightbearing on the left lower extremity. He was able to don and doff the TLSO independently, though he needed some assistance to do it from supine to get the brace positioned on his back. His pain was initially controlled with both sustained release oxycodone and immediate release oxycodone. He was able to discontinue the sustained release oxycodone and was using only rare immediate release oxycodone. By the time of his discharge, he was using acetaminophen and ibuprofen for pain control. He had urinary retention. He had a high postvoid residual. He was treated with tamsulosin initially at 0.4 mg, subsequently titrated to 0.8 mg, and he had no further urinary retention. It was thought that urinary retention was likely due to the effect of opiates. He attempted to grab the rope at the climbing gym as he fell, and he had numerous rope burn wounds. He had been seen by the wound nurse while in the hospital, and wound care was continued during his stay. Wounds were healing with no complications. LABS AND STUDIES IN THE HOSPITAL: He had anemia with a hemoglobin of 13.1 and hematocrit of 38. These were improving from his acute care hospital stay. A comprehensive metabolic profile showed renal functions and electrolytes overall within normal limits. His chloride was slightly low at 96. His BUN was slightly high at 25. There was an elevated ALT at 78; there was no followup testing on this. He had a low vitamin D level at 13.7. DISCHARGE PLAN: Condition upon discharge is good. Activity is ad jana, but nonweightbearing on the left lower extremity. Diet is regular. Date of next appointment: He will follow up with orthopedic surgeon, Dr. Francisco, for ORIF of the left tibia on 12/15/2016. He will follow up with [facility] regarding the T12 compression fracture and need for continued TLSO brace. MEDICATIONS UPON DISCHARGE: 1. Dabigatran 75 mg tablet 225 mg p.o. daily. Discontinue the day before surgery. Resume after surgery on the day of surgery at 150 mg for 1 day and then continue 225 mg per day through December 27. 2. Oxycodone, 5 to 15 mg p.o. q.3 hours p.r.n. 3. Zolpidem 5 to 10 mg p.o. q.h.s. p.r.n. 4. Tamsulosin 0.8 mg p.o. daily. He can likely discontinue this when he is no longer using opiates. 5. Senna 1-2 tabs p.o. b.i.d. 6. Ibuprofen 600 mg p.o. q.6 hours p.r.n. 7. Bacitracin ointment to rope piper p.r.n. 8. Acetaminophen 650 mg p.o. q.4 hours p.r.n. ISSUES TO BE ADDRESSED AT FOLLOWUP: 1. Left tibia fracture with ORIF planned for 12/15/2016. 2. T12 compression fracture with followup per [facility] regarding duration for use of TLSO. 3. Vitamin D deficiency. Replacement was not initiated during his rehabilitation stay and should be initiated and followed by his primary care provider. 4. Functional status. It is unclear whether he will have weightbearing after his ORIF of the tibia, and he will follow up with Dr. Francisco of orthopedic surgery regarding this issue. Copy requested to: [facility] Singh Box (PCP) [facility] /[id number]/MODL MTDD
== END 2016-12-11 10:15 | disposition home health service (06) | DRG 560 ==
LOC: BREH 15:15
PROVIDERS: ADMIT Internal Medicine; ATTEND Internal Medicine
DX: S82.302D Unspecified fracture of lower end of left tibia, subsequent encounter for closed fracture with routine healing (principal); S82.402D Unspecified fracture of shaft of left fibula, subsequent encounter for closed fracture with routine healing; S22.089D Unspecified fracture of T11-T12 vertebra, subsequent encounter for fracture with routine healing; T24.002D Burn of unspecified degree of unspecified site of left lower limb, except ankle and foot, subsequent encounter; T24.011D Burn of unspecified degree of right thigh, subsequent encounter; T24.031D Burn of unspecified degree of right lower leg, subsequent encounter; T23.001D Burn of unspecified degree of right hand, unspecified site, subsequent encounter; Y93.31 Activity, mountain climbing, rock climbing and wall climbing; W17.89XD Other fall from one level to another, subsequent encounter; Y92.39 Other specified sports and athletic area as the place of occurrence of the external cause; K59.00 Constipation, unspecified; F84.0 Autistic disorder; R33.0 Drug induced retention of urine; T40.2X5A Adverse effect of other opioids, initial encounter
CPT/HCPCS: 97110-GO; 97110-GP; 97116-GP; 97162-GP; 97166-GO; 97530-GO; 97530-GP; 97532-GO; 97535-GO; 97542-GP; J1650

== ENCOUNTER 2016-12-15 12:02 | Day surgery (SDC) | payer OTHER ==
[2016-12-15] MEDS ORDERED: SKIN ADHESIVE (DERMABOND) 1 EACH TP ONE (13:07)
[2016-12-15] MEDS ORDERED: BUPIVACAINE 0.5% 30 ML SDV ONE (13:07)
[2016-12-15] MEDS ORDERED: ONDANSETRON 4 MG/2 ML VIAL IVP PRN (13:08)
[2016-12-15] MEDS ORDERED: OXYCODONE/APAP 5/325 TAB PO PRN (13:09)
[2016-12-15] MEDS ORDERED: ONDANSETRON DISINTEGRATING 4 MG TAB PO PRN (13:09)
[2016-12-15] MEDS ORDERED: MIDAZOLAM 2 MG/2 ML VIAL ONE (13:26)
[2016-12-15] MEDS ORDERED: CHLORHEXIDINE GLUC HIBICLENS 118 ML BTL TP ONE (13:30)
[2016-12-15] MEDS ORDERED: ceFAZolin 2 GM/DEXTROSE 100 ML IV ONE ×2 (13:30)
[2016-12-15] MEDS ORDERED: fentaNYL 100 MCG/2 ML INJ ONE (13:38)
[2016-12-15] MEDS ORDERED: LIDOCAINE 2% 100 MG/5 ML SYR ONE (13:39)
[2016-12-15] MEDS ORDERED: PROPOFOL/EMULSION 500 MG/50 ML BOTTLE IV ONE ×2 (13:39→15:25)
[2016-12-15] MEDS ORDERED: DEXAMETHASONE 4 MG/ML VIAL ONE ×2 (13:45→13:59)
[2016-12-15] MEDS ORDERED: ONDANSETRON 4 MG/2 ML VIAL ONE ×2 (13:59→14:00)
--- NOTE | 2016-12-15 17:55 | GOP ---
[f rep st] OPERATIVE REPORT DATE OF OPERATION: 12/15/2016 SURGEON: Will Francisco MD TECH INTERN: Ross Rogers SA. ANESTHESIA: General with single-shot popliteal block and supplemental local. PREOPERATIVE DIAGNOSIS: Left intra-articular comminuted P1 fracture, medial malleolus fracture, ret ained external fixer. POSTOPERATIVE DIAGNOSIS: Left intra-articular comminuted P1 fracture, medial malleolus fracture, re tained external fixer. PROCEDURE PERFORMED: 1. Left external fixator removal. 2. Open reduction and internal fixation, left tibial plafond fracture. 3. Open reduction and internal fixation, left medial malleolus fracture. FINDINGS: SPECIMENS: None. ESTIMATED BLOOD LOSS: 5 mL. INDICATIONS: This is a 31-year-old male, fell from height. Saw him initially, placed him in an ext ernal fixator 2 weeks ago. I saw him yesterday, edema and swelling good enough for surgery. We dis cussed risks and benefits of fracture, nonunion, malunion, arthritis. I did tell him he would get s ome level of arthritis no matter what was done. Need for fusion in the future, need for further fernando roland, continued pain, chronic pain, wound complications, external fixator wound complications and he elected to proceed. Informed consent obtained. All questions answered. Marked preop. DESCRIPTION OF PROCEDURE: Seen in the operative suite. Anesthesia was induced. A block was admini stered per Anesthesia. I removed the external fixator and scrubbed the sites with a scrub. He was then prepped and draped in normal fashion. The sites were protected. The tourniquet was inflated t o 250 mmHg, after time-out was performed verifying site, side, location and all agreement with the t ea. I started with an anterior medial approach to the ankle joint. Forked medial to the tib ant, and fe lt this laterally to expose the ankle joint and the fracture fragments. Try to keep as much vascula rly fragments as I could. There was a lot of stripping that had gone on. His neurovascular bundle and anterior tibial artery were severed and was cut at the fracture site an d I tied this off. I irrigated and cleaned out the fracture site thoroughly. I was then able to mo bilize the main posterior fragment and with clamps I brought this to the bone and I had good reducti on with good cortical leads. I placed a lag screw across this to hold this. I then through a separate incision placed K-wires at the medial mouth of the fragment after directly reducing this. I placed a long 50 mm 4 cannulated screws across this to hold this. I then reduced the free-floating articular fragment back to where it belonged and then placed the an terior fragment was soft-tissue attachments over this and sandwiched this back in place with good re duction of the cortical reads. I felt the reduction was good on x-ray. I held this initially with a 2.7 cortical screw. I placed a plate over this. Brought the plate to the bone with cortex screws , locking screws distally and nonlocking screws proximally to achieve a stable construct. I felt hi s range of motion was good and smooth. I felt a good reduction on x-ray and the articular surface w as as good as it could be given his massive amount of comminution. It did have some gap in the barber cular surface on the final x-ray. The fibula fixation still remained intact. This was thoroughly irrigated, closed with #1 Vicryl, 0 Vicryl, 2-0 Vicryl, 3-0 Monocryl, Dermabond. He was taken to PACU in stable condition. IMPLANTS: Synthes 3527 cortical screws, locking screws and anterior lateral plafond plate. COMPLICATIONS: None. DRAINS: None. CONDITION: Stable. /[id number]/MODL
== END 2016-12-15 18:20 | disposition home or self-care (01) ==
LOC: UNDOADMOB 12:02 → FSGY 12:02 → F3N 12:02 → EDSTATUS 13:30 → FSGY 18:20
PROVIDERS: ATTEND Orthopaedic Surgery
DX: S82.872A Displaced pilon fracture of left tibia, initial encounter for closed fracture (principal); S82.402D Unspecified fracture of shaft of left fibula, subsequent encounter for closed fracture with routine healing; W17.89XD Other fall from one level to another, subsequent encounter; F31.9 Bipolar disorder, unspecified; F84.0 Autistic disorder
CPT/HCPCS: 27827; 76001; C1769; C1713; J0690; J1100; J2001; J2250; J2405; J2704; J3010

== ENCOUNTER 2017-08-05 07:59 | Emergency (ER) | payer OTHER ==
[2017-08-05] MEDS ORDERED: ONDANSETRON 4 MG/2 ML VIAL ONE ×2 (08:15→11:48)
[2017-08-05] MEDS ORDERED: ONDANSETRON 4 MG/2 ML VIAL IVP ONE ×2 (08:30→11:50)
[2017-08-05] MEDS ORDERED: NS 1,000 ML IV ONE ×4 (08:32→11:05)
[2017-08-05] MEDS ORDERED: HYDROmorphONE/DILAUDID 1 MG/ML INJ IVP ONE (08:34)
--- NOTE | 2017-08-05 08:38 | EDPHY ---
H & P Stated Complaint: n/v/ daily thc Time Seen by Provider: 08/05/17 08:29 - Personal History Current Tetanus/Diphtheria Vaccine: Yes - Medical/Surgical History Hx Asthma: No Hx Chronic Respiratory Disease: No Hx Diabetes: No Hx Cardiac Disease: No Hx Renal Disease: No Hx Cirrhosis: No Hx Alcoholism: No Hx HIV/AIDS: No Hx Splenectomy or Spleen Trauma: No Other PMH: HERNIA REPAIR W/ MESH 10 years ago. AUTISM SPECTRUM Asbergers. fx back/l ankle. chronic back pain, bipolor - Social History Smoking Status: Never smoked Constitutional: Initial Vital Signs Temperature (C) 36.7 C 08/05/17 08:03 Heart Rate 82 08/05/17 08:03 Respiratory Rate 18 08/05/17 08:03 Blood Pressure 107/67 08/05/17 08:03 O2 Sat (%) 96 08/05/17 08:03 O2 Delivery Mode Room Air Allergies/Adverse Reactions: No Known Allergies Allergy (Verified 08/05/17 08:02) Home Medications: Medication Instructions Recorded NK [No Known Home Meds] 08/05/17 Medical Decision Making ED Course/Re-evaluation: CHIEF COMPLAINT: Nausea vomiting diarrhea HISTORY OF PRESENT ILLNESS: 32-year-old gentleman whose roommate was in our emergency department a couple of days ago with a gastroenteritis. This patient most likely caught it. He has vomited since 10:00 p.m. last night approximately 20 times according to him. He has also had copious diarrhea. He has some mild abdominal pain but he thinks that is from dry heaving. He is having fevers and chills also. He denies any significant medical illness. REVIEW OF SYSTEMS: A 10 point review of systems was performed and is negative with the exception of the elements mentioned in the history of present illness. PHYSICAL EXAM: HR, BP, O2 Sat, RR. Temp noted General Appearance: Alert, well hydrated, appropriate, and non-toxic appearing. Head: Atraumatic without scalp tenderness or obvious injury Eyes: Pupils equal, round, reactive to light and accommodation, EOMI, no trauma , no injection. Ears: Clear bilaterally, no perforation, normal landmarks Nose: Atraumatic, no rhinorrhea, clear. Throat: There is no erythema or exudates, no lesions, normal tonsils, mucus membranes moist. Neck: Supple, 2+ carotid upstroke, nontender, no lymphadenopathy. Respiratory: No retractions, no distress, no wheezes, and no accessory muscle use. Lungs are clear to auscultation bilaterally. Cardiovascular: Regular rate and rhythm, no murmurs, rubs, or gallops. Bilateral carotid, radial, dorsalis pedis, and posterior tibial pulses intact. Good capillary refill all extremities. Gastrointestinal: Abdomen is soft, nontender, non-distended, no masses, no rebound, no guarding, no peritoneal signs. Benign Musculoskeletal: Normal active ROM of all extremities, atraumatic. Neurological: Alert, appropriate, and interactive. The patient has normal DTRs and non-focal cranial nerves, motor, sensory, and cerebellar exam. Skin: No rashes, good turgor, no nodules on palpation. Past medical history: Noncontributory Past surgical history: Left ankle fracture Family history: Noncontributory Social history: Lives with a roommate who recently had a gastroenteritis, does not abuse tobacco drugs or alcohol, not DIFFERENTIAL DIAGNOSIS: The differential diagnosis for the patient's nausea and vomiting included but was not limited to gastroenteritis, gastritis, appendicitis, and medication side effect. MEDICAL DECISION MAKING: This patient has a fairly classic gastroenteritis with nausea vomiting abdominal cramping and diarrhea. His roommate had exactly the same thing a couple of days ago which resolved. We will hydrate this patient and perform a clear liquid trial once he is feeling better. I will also check electrolytes to make sure there are no electrolyte or kidney abnormalities. This patient specifically is not diabetic. This patient is had 3 L of normal saline and is now able to take oral fluids without vomiting. He was significantly dehydrated but is much less so now. We will continue to hydrate him until he needs to urinate and then he will be safe to go home. - Data Points Laboratory Results: Laboratory Results 08/05/17 08:20 08/05/17 08:20 Sodium 150 mEq/L H mEq/L (134-144) Potassium 3.8 mEq/L mEq/L (3.5-5.2) Chloride 106 mEq/L mEq/L (97-110) Carbon Dioxide 26 mEq/l mEq/l (22-31) Anion Gap 18 mEq/L H mEq/L (8-16) BUN 19 mg/dL mg/dL (7-23) Creatinine 1.0 mg/dL mg/dL (0.7-1.3) Estimated GFR > 60 Glucose 141 mg/dL H mg/dL (70-100) Calcium 10.1 mg/dL mg/dL (8.5-10.4) Medications Given: Discontinued Medications Hydromorphone HCl (Dilaudid) 1 mg IVP EDNOW ONE Stop: 08/05/17 08:35 Last Admin: 08/05/17 10:59 Dose: Not Given Sodium Chloride (Ns) 1,000 mls @ 3,000 mls/hr IV ONCE ONE Stop: 08/05/17 08:51 Last Admin: 08/05/17 08:32 Dose: 1,000 mls Sodium Chloride (Ns) 1,000 mls @ 0 mls/hr IV EDNOW ONE; Wide Open PRN Reason: Protocol Stop: 08/05/17 08:35 Last Admin: 08/05/17 09:02 Dose: 1,000 mls Sodium Chloride (Ns) 1,000 mls @ 0 mls/hr IV EDNOW ONE; Wide Open PRN Reason: Protocol Stop: 08/05/17 08:35 Last Admin: 08/05/17 10:15 Dose: 1,000 mls Ondansetron HCl (Zofran) 4 mg IVP EDNOW ONE Stop: 08/05/17 08:31 Last Admin: 08/05/17 08:31 Dose: 4 mg Departure - Departure Disposition: Home, Routine, Self-Care Clinical Impression: Acute gastroenteritis, Dehydration, moderate Condition: Good Instructions: Dehydration (ED), Gastroenteritis (ED) Referrals: MD YURIY [Other] - As per Instructions
[2017-08-05 08:45] LABS: ANION GAP 18 mEq/L (8-16); CALCIUM 10.1 mg/dL (8.5-10.4); CARBON DIOXIDE 26 mEq/l (22-31); CHLORIDE 106 mEq/L (97-110); GLOMERULAR FILTRATION RATE > 60; GLUCOSE 141 mg/dL (70-100); POTASSIUM 3.8 mEq/L (3.5-5.2); SODIUM 150 mEq/L (134-144)
[2017-08-05 09:57] VITALS: RESP 16
[2017-08-05] MEDS ORDERED: ONDANSETRON 4MG PREPACK#2 BTL TAKEHOME ONE ×2 (11:49→11:50)
[2017-08-05 12:29] VITALS: BP 100/55; PULSE 84; TEMP 98.1; O2SAT 95
== END 2017-08-05 12:29 | disposition home or self-care (01) ==
DX: K52.9 Noninfective gastroenteritis and colitis, unspecified (principal); E86.0 Dehydration; E86.9 Volume depletion, unspecified
CPT/HCPCS: 96374; J1170; J2405